=== PATIENT | male | born 1960 | race Caucasian/White ===

== ENCOUNTER 2019-03-15 12:17 | Emergency (ER) | payer MEDICARE, MEDICAID ==
[2019-03-15 15:02] LABS: MEAN CORPUSCULAR HEMOGLOBIN 30.8 pg (27.0-33.4); MEAN CORPUSCULAR HGB CONC 33.2 g/dL (32.0-36.0); MEAN CORPUSCULAR VOLUME 93 fl (80-97); PLATELET COUNT 355 10^3/uL (150-450); RED BLOOD COUNT 4.22 10^6/uL (4.35-5.55); RED CELL DISTRIBUTION WIDTH 12.7 % (11.5-14.0); WHITE BLOOD COUNT 9.8 10^3/uL (4.0-10.5)
[2019-03-15 15:07] LABS: ALANINE AMINOTRANSFERASE 12 U/L (21-72); ALBUMIN 3.8 g/dL (3.5-5.0); ALKALINE PHOSPHATASE 152 U/L (38-126); ANION GAP 10 (5-19); ASPARTATE AMINO TRANSFERASE 12 U/L (17-59); BILIRUBIN,DIRECT 0.3 mg/dL (0.0-0.4); BILIRUBIN,TOTAL 0.3 mg/dL (0.2-1.3); BLOOD UREA NITROGEN 26 mg/dL (7-20); CALCIUM 9.8 mg/dL (8.4-10.2); CARBON DIOXIDE 27 mmol/L (22-30); CHLORIDE 107 mmol/L (98-107); CREATINE KINASE 51 U/L (55-170); GLUCOSE 85 mg/dL (75-110); SODIUM 143.8 mmol/L (137-145); TOTAL PROTEIN 7.6 g/dL (6.3-8.2)
--- NOTE | 2019-03-15 15:08 | ER Document Report ---
Entered by MIRA NOGUERA SCRIBE 03/15/19 1309 Acting as scribe for:RONALD PENN MD ED General - General Chief Complaint: Fall Stated Complaint: FALL Time Seen by Provider: 03/15/19 13:03 Primary Care Provider: ROLO ZHOU MD [Primary Care Provider] - Follow up as needed Notes: Patient is a 58-year-old male arriving via EMS presenting to the emergency due to a call from his [facility] regarding "unpurposeful movement". Patient did not call anyone for a fall, this morning at 0900 patient was at his [facility] when his nurse called EMS because the patient had unpurposeful movements. EMS contacted his primary care physician who instructed them to bring him into the emergency department. Patient states that he recently had a urinary tract infection, in which he was transported from [place] his [facility] to [facility]. TRAVEL OUTSIDE OF THE [place] IN LAST 30 DAYS: No - Related Data Allergies/Adverse Reactions: No Known Allergies Allergy (Unverified 03/15/19 17:21) Past Medical History - General Information source: Patient - Social History Smoking Status: Unknown if Ever Smoked Cigarette use (# per day): No Chew tobacco use (# tins/day): No Frequency of alcohol use: None Drug Abuse: None Family History: Reviewed & Not Pertinent Patient has suicidal ideation: No Patient has homicidal ideation: No Neurological Medical History: Reports: Hx Seizures GI Medical History: Reports: Hx Gastroesophageal Reflux Disease, Hx Ulcer - pressure ulcer on unspecified buttock, stage 2 Musculoskeletal Medical History: Reports Other - Cachexia Psychiatric Medical History: Reports: Hx Anxiety Review of Systems - Review of Systems Constitutional: See HPI, Malaise EENT: No symptoms reported Cardiovascular: No symptoms reported Respiratory: No symptoms reported Gastrointestinal: No symptoms reported Genitourinary: No symptoms reported Male Genitourinary: No symptoms reported Musculoskeletal: No symptoms reported Skin: No symptoms reported Hematologic/Lymphatic: No symptoms reported Neurological/Psychological: See HPI, Tremor -: Yes All other systems reviewed and negative Physical Exam - Vital signs Vitals: Resp BP Pulse Ox 12 107/76 96 03/15/19 12:22 03/15/19 12:22 03/15/19 12:22 - Notes Notes: Physical Exam: General: Alert, cachectic. HEENT: Normocephalic. Atraumatic. PERRL. Extraocular movements intact. Oropharynx clear. Neck: Supple. Non-tender. Respiratory: No respiratory distress. Clear and equal breath sounds bilaterally. Cardiovascular: Regular rate and rhythm. Abdominal: Normal Inspection. Non-tender. No distension. Normal Bowel Sounds. Back: Non-tender. No deformity or step off. Extremities: Moves all four extremities. Upper extremities: Normal inspection. Normal ROM. Lower extremities: Normal inspection. No edema. Normal ROM. Neurological: Contractions, jerks. Normal cognition. AAOx4. Normal speech. Psychological: Normal affect. Normal Mood. Skin: Warm. Dry. Normal color. Course - Re-evaluation Re-evalutation: 03/15/19 18:45 The first catheterized urine obtained, was quite cloudy and looked infected. It was sent to the lab without a label being placed on it so was discarded by the lab. The second attempt to get a catheterized urine resulted in gross blood return so that attempt was stopped and the patient was given IV fluid hydration. A repeat attempt for the urinalysis using a [employer] was successful with a urine that was obviously infected but not grossly bloody. Review of the records shows when the patient was admitted for urosepsis 2 months ago, he was treated with Rocephin successfully. - Vital Signs Vital signs: Temp Pulse Resp BP Pulse Ox 977 F H 14 100/75 94 03/15/19 12:48 03/15/19 15:00 03/15/19 15:00 03/15/19 15:00 - Laboratory Result Diagrams: 03/15/19 14:29 03/15/19 14:29 Laboratory results interpreted by me: 03/15/19 03/15/19 03/15/19 14:29 14:29 15:28 RBC 4.22 L Hgb 13.0 L BUN 26 H AST 12 L ALT 12 L Alkaline Phosphatase 152 H Creatine Kinase 51 L Urine Protein Urine Blood Ur Leukocyte Esterase Urine Ascorbic Acid Phenytoin 5.7 L 03/15/19 17:39 RBC Hgb BUN AST ALT Alkaline Phosphatase Creatine Kinase Urine Protein >=500 H Urine Blood SMALL H Ur Leukocyte Esterase MODERATE H Urine Ascorbic Acid 40 H Phenytoin Discharge - Discharge Clinical Impression: Muscle spasms of both lower extremities, Subtherapeutic serum dilantin level Urinary tract infection Qualifiers: Urinary tract infection type: site unspecified Hematuria presence: with hematuria Qualified Code(s): N39.0 - Urinary tract infection, site not specified; R31.9 - Hematuria, unspecified Condition: Stable Disposition: HOME, SELF-CARE Additional Instructions: Urinary Tract Infection Your evaluation indicates that you have a urinary tract infection. This is due to germs growing in the bladder. This is a common problem. This infection usually responds quickly to antibiotics. Your antibiotic should be taken exactly as prescribed. Drink plenty of fluids -- three to four quarts a day. Occasionally, a bladder anesthetic will be prescribed to help stop the feeling of urgency until the antibiotic has a chance to clear the infection. This may cause your urine to be dark orange. Certain urine infections require a culture. If the doctor obtained a culture, the results will be back in two days. You should call to see if a change in treatment is needed. A repeat urinalysis after you finish treatment is often recommended. The physician will let you know if further testing is required. Call the doctor if you develop fever, chills, flank pain, inability to urinate, or blood in the urine. Your Dilantin level was very low today. The jerking that the nurse witnessed could possibly have been a seizure. You also have a urinary tract infection. You are given a dose of Dilantin to increase you to a therapeutic level. The Lamictal level is a send out and will be available sometime next week--your doctor should check with the lab to confirm that you are therapeutic on your La mictal. The urine was cultured and the results should be available in 2 days. For now you were given a dose of Rocephin in the emergency room and will be discharged with prescription for Keflex. You should drink plenty of fluids to help flush out the urine infection. Prescriptions: Cephalexin Monohydrate [Keflex 500 mg Capsule] 500 mg PO TID #20 capsule Referrals: ROLO ZHOU MD [Primary Care Provider] - Follow up as needed Scribe Attestation: 03/15/19 15:45 I personally performed the services described in the documentation, reviewed and edited the documentation which was dictated to the scribe in my presence, and it accurately records my words and actions. I personally performed the services described in the documentation, reviewed and edited the documentation which was dictated to the scribe in my presence, and it accurately records my words and actions.
[2019-03-15] MEDS ORDERED: NORMAL SALINE 1000 ML 500 ML IV ONE (15:10)
[2019-03-15 15:39] LABS: ABSOLUTE LYMPHOCYTES# (MANUAL) 3.9 10^3/uL (0.5-4.7); ABSOLUTE MONOCYTES # (MANUAL) 1.3 10^3/uL (0.1-1.4); BASOPHILS % (MANUAL) 0 % (0-2); EOSINOPHILS % (MANUAL) 2 % (0-6); LYMPHOCYTES % (MANUAL) 40 % (13-45); MONOCYTES % (MANUAL) 13 % (3-13); SEGMENTED NEUTROPHILS % (MAN) 45 % (42-78); TOTAL CELLS COUNTED 100
[2019-03-15 15:41] LABS: PLATELET CLUMPS PRESENT; PLATELET COMMENT ADEQUATE; RBC MORPHOLOGY COMMENT NORMO-CYTIC/CHROMIC
[2019-03-15] MEDS ORDERED: PHENYTOIN SODIUM INJ/PF 250 MG/5 ML SDV IV ONE (17:17)
[2019-03-15] MEDS ORDERED: LIDOCAINE 2% URO-JET 5 ML KIT MM ONE (17:19)
[2019-03-15 18:24] LABS: APPEARANCE,URINE TURBID; BILIRUBIN,URINE NEGATIVE (NEGATIVE); COLOR,URINE YELLOW; GLUCOSE, URINE NEGATIVE (NEGATIVE); KETONES,URINE NEGATIVE (NEGATIVE); LEUKOCYTE ESTERASE,URINE MODERATE (NEGATIVE); NITRITE,URINE NEGATIVE (NEGATIVE); PROTEIN,URINE >=500 mg/dL (NEGATIVE); URINE SPECIFIC GRAVITY 1.013; UROBILINOGEN,URINE NEGATIVE mg/dL (<2.0)
[2019-03-15] MEDS ORDERED: CEFTRIAXONE 1 GM/D5W RTU 1 GM/50 ML RTUPB IV ONE (18:41)
[2019-03-15 21:25] VITALS: BP 99/85
== END 2019-03-15 21:37 | disposition home or self-care (01) ==
LOC: ER 12:17
DX: N39.0 Urinary tract infection, site not specified (principal); R31.9 Hematuria, unspecified; M62.838 Other muscle spasm; R89.2 Abnormal level of other drugs, medicaments and biological substances in specimens from other organs, systems and tissues; R53.81 Other malaise
CPT/HCPCS: 99284; 96361; 51701; 96375; 96365; 36415; 87086; 82550; 83735; 80185; 85025; 87088; 80053; 80175; 81001; J1165; J7030; J0696; A9270; J3490

== ENCOUNTER 2019-07-13 16:10 | Emergency (ER) | payer MEDICARE, MEDICAID ==
--- NOTE | 2019-07-13 17:05 | ER Document Report ---
ED General - General Chief Complaint: Altered Mental Status Stated Complaint: ALTERED MENTAL STATUS Time Seen by Provider: 07/13/19 16:22 Primary Care Provider: ROLO ZHOU MD [Primary Care Provider] - Follow up as needed TRAVEL OUTSIDE OF THE [place] IN LAST 30 DAYS: No - HPI Notes: Patient is a 59-year-old male who is presented to the emergency department from the senior living for decreased level consciousness. He was found to have a supratherapeutic Dilantin level. It was actually found 2 days ago and is lower today. The patient states he has some pain in his left elbow. Otherwise he denies any acute complaints or concerns. - Related Data Allergies/Adverse Reactions: No Known Allergies Allergy (Unverified 03/15/19 17:21) Home Medications: Tylenol 650 mg every 4 hours as needed, vitamin C 500 mg daily, baclofen 10 mg 3 times daily as needed, Dilantin 100 mg, 2 capsules twice daily, iron tablet 325 mg daily, Keppra 500 mg twice daily, lactulose 15 mL p.o. daily for constipation, Lamictal 200 mg 3 times daily, Lamictal 25 mg 50 mg nightly, Zantac 150 mg twice daily, Remeron 7.5 mg daily, Zoloft 25 mg daily Past Medical History - General Information source: Patient, Outside Facility Records - Social History Smoking Status: Former Smoker Family History: Reviewed & Not Pertinent Patient has suicidal ideation: No Patient has homicidal ideation: No - Medical History Medical History: Other - Protein calorie malnutrition Neurological Medical History: Reports: Hx Seizures, Other - Metabolic encephalopathy Renal/ Medical History: Denies: Hx Peritoneal Dialysis GI Medical History: Reports: Hx Gastroesophageal Reflux Disease, Hx Ulcer - pressure ulcer on unspecified buttock, stage 2 Psychiatric Medical History: Reports: Hx Anxiety, Other - Conversion disorder Review of Systems - Review of Systems Constitutional: No symptoms reported EENT: No symptoms reported Cardiovascular: No symptoms reported Respiratory: No symptoms reported Gastrointestinal: No symptoms reported Genitourinary: No symptoms reported Musculoskeletal: No symptoms reported Skin: No symptoms reported Neurological/Psychological: See HPI Physical Exam - Vital signs Vitals: Resp 21 H 07/13/19 16:24 - Notes Notes: This is an extremely cachectic 59-year-old male, appears older than his stated age in no acute distress. Vital signs reviewed, please refer to chart. Head is normocephalic, atraumatic. Pupils equal round, reactive to light. Neck is supple without meningismus. Heart is regular rate and rhythm. Lungs are clear to auscultation bilaterally. Pectus excavatum noted. Abdomen is soft, non tender, normoactive bowel sounds throughout. Extremities without cyanosis, clubbing. Posterior calves are nontender. Peripheral pulses are equal. Skin is warm and dry. GCS 4, 5, 6. Patient oriented x3. Strength is 4+ out of 5 bilateral upper and lower extremities. No gross facial asymmetry. Course - Re-evaluation Re-evalutation: 07/13/19 17:07 Patient presents emergency department for evaluation of an elevated Dilantin le ac. It is been falling, does not as quickly as they were hoping. I will add a Dilantin level and ammonia level. Patient at this point has not GCS of 15, I am not concerned about any significant decreased level of consciousness. Will continue to monitor. 07/13/19 18:40 Patient remained stable. Dilantin level has come down significantly. He is awake and alert. We will discharge him back to the care of the senior living. - Vital Signs Vital signs: Temp Pulse Resp BP Pulse Ox 98.8 F 21 H 97/66 L 07/13/19 16:30 07/13/19 17:00 07/13/19 17:00 - Laboratory Result Diagrams: 07/13/19 16:22 07/13/19 16:22 Laboratory results interpreted by me: 07/13/19 07/13/19 07/13/19 16:21 16:22 16:22 RBC 3.86 L Hgb 11.7 L Hct 36.0 L RDW 14.4 H Chloride 111 H BUN 22 H Glucose 111 H POC Glucose 111 H Alkaline Phosphatase 130 H Albumin 3.3 L Phenytoin 07/13/19 16:22 RBC Hgb Hct RDW Chloride BUN Glucose POC Glucose Alkaline Phosphatase Albumin Phenytoin 23.8 H* Discharge - Discharge Clinical Impression: Subtherapeutic serum dilantin level Condition: Stable Disposition: HOME-SNF (ED ONLY) Instructions: Dilantin ([facility]) Additional Instructions: Dilantin level was 23.8 today. Continue to hold this medication. Follow-up with primary care this week, return to the ED with worsening. Referrals: ROLO ZHOU MD [Primary Care Provider] - Follow up as needed
[2019-07-13 17:08] LABS: ABSOLUTE EOSINOPHILS # (AUTO) 0.1 10^3/uL (0.0-0.6); ABSOLUTE LYMPHOCYTES (AUTO) 1.3 10^3/uL (0.5-4.7); ABSOLUTE MONOCYTES (AUTO) 0.7 10^3/uL (0.1-1.4); ABSOLUTE NEUT (AUTO) 6.2 10^3/uL (1.7-8.2); BASOPHILS % (AUTO) 0.2 % (0-2); EOSINOPHILS % (AUTO) 1.1 % (0-6); HEMOGLOBIN 11.7 g/dL (13.5-17.0); LYMPHOCYTES % (AUTO) 15.8 % (13-45); MEAN CORPUSCULAR HEMOGLOBIN 30.2 pg (27.0-33.4); MEAN CORPUSCULAR HGB CONC 32.4 g/dL (32.0-36.0); MEAN CORPUSCULAR VOLUME 93 fl (80-97); MONOCYTES % (AUTO) 8.3 % (3-13); PLATELET COUNT 183 10^3/uL (150-450); RED BLOOD COUNT 3.86 10^6/uL (4.35-5.55); RED CELL DISTRIBUTION WIDTH 14.4 % (11.5-14.0); SEGMENTED NEUTROPHILS % (AUTO) 74.6 % (42-78); TOTAL CELLS COUNTED % (AUTO) 100 %; WHITE BLOOD COUNT 8.3 10^3/uL (4.0-10.5)
[2019-07-13 17:13] LABS: ALBUMIN 3.3 g/dL (3.5-5.0); ALKALINE PHOSPHATASE 130 U/L (38-126); ANION GAP 9 (5-19); ASPARTATE AMINO TRANSFERASE 19 U/L (17-59); BILIRUBIN,DIRECT 0.3 mg/dL (0.0-0.4); BILIRUBIN,TOTAL 0.3 mg/dL (0.2-1.3); BLOOD UREA NITROGEN 22 mg/dL (7-20); CALCIUM 8.9 mg/dL (8.4-10.2); CARBON DIOXIDE 25 mmol/L (22-30); CHLORIDE 111 mmol/L (98-107); GLUCOSE 111 mg/dL (75-110); POTASSIUM 3.8 mmol/L (3.6-5.0); TOTAL PROTEIN 6.9 g/dL (6.3-8.2)
[2019-07-13 19:33] VITALS: BP 105/72
--- NOTE | 2019-07-13 22:55 | EKG REPORT ---
SEVERITY:- ABNORMAL ECG - SINUS RHYTHM PROBABLE LEFT ATRIAL ABNORMALITY LAD, CONSIDER LEFT ANTERIOR FASCICULAR BLOCK : Confirmed by: Caro Maher MD 13-Jul-2019 22:53:55
== END 2019-07-13 19:25 ==
LOC: ER 16:10
DX: R79.1 Abnormal coagulation profile (principal); R41.82 Altered mental status, unspecified; M25.522 Pain in left elbow
CPT/HCPCS: 36415; 80053; 80185; 82140; 82962; 85025; 93005; 93010; 99285

== ENCOUNTER 2019-07-18 11:14 | Emergency (ER) | payer MEDICARE, MEDICAID ==
[2019-07-18 12:27] LABS: ABSOLUTE BASOPHILS # (AUTO) 0.1 10^3/uL (0.0-0.2); ABSOLUTE EOSINOPHILS # (AUTO) 0.2 10^3/uL (0.0-0.6); ABSOLUTE LYMPHOCYTES (AUTO) 1.5 10^3/uL (0.5-4.7); ABSOLUTE MONOCYTES (AUTO) 0.6 10^3/uL (0.1-1.4); ABSOLUTE NEUT (AUTO) 7.3 10^3/uL (1.7-8.2); BASOPHILS % (AUTO) 0.6 % (0-2); EOSINOPHILS % (AUTO) 2.1 % (0-6); HEMATOCRIT 38.7 % (37.9-51.0); HEMOGLOBIN 13.1 g/dL (13.5-17.0); LYMPHOCYTES % (AUTO) 15.5 % (13-45); MEAN CORPUSCULAR HEMOGLOBIN 30.9 pg (27.0-33.4); MEAN CORPUSCULAR HGB CONC 33.7 g/dL (32.0-36.0); MEAN CORPUSCULAR VOLUME 92 fl (80-97); MONOCYTES % (AUTO) 6.5 % (3-13); PLATELET COUNT 327 10^3/uL (150-450); RED BLOOD COUNT 4.22 10^6/uL (4.35-5.55); RED CELL DISTRIBUTION WIDTH 13.8 % (11.5-14.0); SEGMENTED NEUTROPHILS % (AUTO) 75.3 % (42-78); TOTAL CELLS COUNTED % (AUTO) 100 %; WHITE BLOOD COUNT 9.8 10^3/uL (4.0-10.5)
[2019-07-18 12:46] LABS: ALBUMIN 3.8 g/dL (3.5-5.0); ALKALINE PHOSPHATASE 181 U/L (38-126); ANION GAP 10 (5-19); ASPARTATE AMINO TRANSFERASE 21 U/L (17-59); BILIRUBIN,DIRECT 0.2 mg/dL (0.0-0.4); BILIRUBIN,TOTAL 0.3 mg/dL (0.2-1.3); BLOOD UREA NITROGEN 25 mg/dL (7-20); CALCIUM 9.3 mg/dL (8.4-10.2); CARBON DIOXIDE 26 mmol/L (22-30); CHLORIDE 105 mmol/L (98-107); GLUCOSE 96 mg/dL (75-110); POTASSIUM 4.7 mmol/L (3.6-5.0); TOTAL PROTEIN 7.8 g/dL (6.3-8.2)
[2019-07-18 12:48] LABS: ALCOHOL < 10 mg/dL (NONE DETECTED)
--- NOTE | 2019-07-18 13:06 | ER Document Report ---
ED General - General Chief Complaint: Altered Mental Status Stated Complaint: ALTERED MAENTAL STATUS Time Seen by Provider: 07/18/19 12:51 Primary Care Provider: ROLO ZHOU MD [Primary Care Provider] - Follow up as needed Notes: Patient is a 59-year-old male who presents emergency department with decreased level of consciousness per the skilled nursing staff. Patient states that he files fine at this time. Apparently he was not talking, but began to talk after an hour and a half of not being his normal self. Patient denies any symptoms at this time. He was apparently seen here with a supratherapeutic phenytoin level the other day. Medication adjustments were made. TRAVEL OUTSIDE OF THE [place] IN LAST 30 DAYS: No - Related Data Allergies/Adverse Reactions: No Known Allergies Allergy (Unverified 03/15/19 17:21) Home Medications: Acetaminophen, Ascorbic acidm baclofen, Dilantin, Docusate sodium, iron, Keppra, Lactulose, Lamictal, ranitidine, Remeron, Sertraline Past Medical History - Social History Smoking Status: Former Smoker Chew tobacco use (# tins/day): No Frequency of alcohol use: None Drug Abuse: None Family History: Reviewed & Not Pertinent Patient has suicidal ideation: No Patient has homicidal ideation: No Neurological Medical History: Reports: Hx Seizures Renal/ Medical History: Denies: Hx Peritoneal Dialysis GI Medical History: Reports: Hx Gastroesophageal Reflux Disease, Hx Ulcer - pressure ulcer on unspecified buttock, stage 2 Psychiatric Medical History: Reports: Hx Anxiety Review of Systems - Review of Systems Notes: REVIEW OF SYSTEMS: CONSTITUTIONAL : Denies recent illness. Denies recent unintentional weight loss. Denies fever, chills, or sweats. EENT: Denies eye, ear, throat, or mouth pain, discharge, or symptoms. Denies nasal or sinus congestion. CARDIOVASCULAR: Denies chest pain. RESPIRATORY: Denies shortness of breath, cough, congestion, difficulty breathing, or wheezing. GASTROINTESTINAL: Denies nausea, vomiting, and diarrhea. Denies abdominal pain. Denies constipation. GENITOURINARY: Denies difficulty urinating, burning, blood in urine, urgency or frequency. MUSCULOSKELETAL: Denies neck and back pain. Denies joint pain or swelling. SKIN: Denies rash, itchiness, or lesions HEMATOLOGIC : Denies easy bruising or bleeding. LYMPHATIC: Denies swollen, painful, enlarged glands. NEUROLOGICAL: See HPI. PSYCHIATRIC: Denies stress, anxiety, alteration in sleep patterns, or depression. All other systems reviewed and negative. Physical Exam - Notes Notes: PHYSICAL EXAMINATION: GENERAL: Appears cachectic, chronically ill, no acute distress. HEAD: Normocephalic, atraumatic. EYES: PERRL, conjunctiva normal, all extraocular movements intact, sclera nonicteric ENT: Moist mucous membranes. NECK: Supple, no noticeable swelling, redness, rash. Normal range of motion. LUNGS: Equal breath sounds bilaterally and clear to auscultation. No wheezes rales or rhonchi. CARDIOVASCULAR: S1-S2, regular rate, regular rhythm. Radial pulses 2+, normal. ABDOMEN: Normoactive bowel sounds. Soft, nontender, no guarding, no rebound tenderness, and no masses palpated. EXTREMITIES: Normal strength and range of motion, no pitting or edema. No cyanosis. NEUROLOGICAL: Moves all extremities upon command. Strength 5/5 in all extremities. PSYCH: Normal mood, normal affect. SKIN: Warm, dry. No rash, lesions, ulcerations noted. Normal skin turgor. Course - Re-evaluation Re-evalutation: 07/18/19 16:09 Patient's Dilantin level is low. I will give him 100 mg IV and he will continue his Dilantin 200 mg twice a day at the skilled nursing. He will also has a urinary tract infection. He apparently's was started on Bactrim at [facility], but they DC'd the antibiotic. He will be started on Keflex. Urine culture has been set. I relayed this information on to the patient and to his aunt over the phone per the patient's request. Patient will be discharged to [facility]. Follow-up precautions were given. Verbal discharge instructions were given to the patient. They verbalized understanding. They are stable for discharge. - Laboratory Result Diagrams: 07/18/19 12:06 07/18/19 12:06 Laboratory results interpreted by me: 07/18/19 07/18/19 07/18/19 12:06 12:06 14:01 RBC 4.22 L Hgb 13.1 L BUN 25 H Alkaline Phosphatase 181 H Urine Protein Urine Blood Ur Leukocyte Esterase Urine Ascorbic Acid Phenytoin 3.3 L 07/18/19 15:13 RBC Hgb BUN Alkaline Phosphatase Urine Protein 100 H Urine Blood SMALL H Ur Leukocyte Esterase LARGE H Urine Ascorbic Acid 40 H Phenytoin - EKG Interpretation by Me Additional EKG results interpreted by me: 07/18/19 16:10 Sinus rhythm. Rate 92. OR 168; QRS 96; QT 376; QTc [address] elevations or depressions noted. Discharge - Discharge Clinical Impression: Subtherapeutic serum dilantin level Urinary tract infection Qualifiers: Urinary tract infection type: acute cystitis Hematuria presence: without hematuria Qualified Code(s): N30.00 - Acute cystitis without hematuria Condition: Stable Disposition: HOME, SELF-CARE Instructions: Cephalexin ([facility]) Additional Instructions: He was seen today in the emergency department for altered mental status. He has a urinary tract infection. His Dilantin level was low. He received 1000 mg of Dilantin IV and a gram of Rocephin here in the emergency department. He is being started on antibiotics. Make sure he takes all his antibiotics as prescribed. Please continue his Dilantin 200 mg p.o. twice a day. Prescriptions: Cephalexin [Keflex] 500 mg PO BID #14 capsule Referrals: ROLO ZHOU MD [Primary Care Provider] - Follow up in 3-5 days
--- NOTE | 2019-07-18 13:42 | RADIOLOGY REPORT (SQ) ---
EXAM DESCRIPTION: CT HEAD WITHOUT COMPLETED DATE/TIME: 07/18/2019 1:25 pm REASON FOR STUDY: AMS COMPARISON: None. TECHNIQUE: Axial images acquired through the brain without intravenous contrast. Images reviewed wi th bone, brain and subdural windows. Additional sagittal and coronal reconstructions were generated. Images stored on PACS. All CT scanners at this facility use dose modulation, iterative reconstruction, and/or weight based d osing when appropriate to reduce radiation dose to as low as reasonably achievable (ALARA). [facility]: Dose Right [facility]: CareDose [facility]: Dose Right [facility]: Teradose 4D [facility]: Smart CoworkingON RADIATION DOSE: CT Rad equipment meets quality standard of care and radiation dose reduction techniq ues were employed. CTDIvol: 53.2 mGy. DLP: 964 mGy-cm. mGy. LIMITATIONS: None. FINDINGS: VENTRICLES: Normal size and contour. CEREBRUM: No masses. No hemorrhage. No midline shift. No evidence for acute infarction. There is a symmetric left hemispheric volume loss. CEREBELLUM: No masses. No hemorrhage. No alteration of density. No evidence for acute infarction. EXTRAAXIAL SPACES: No fluid collections. No masses. ORBITS AND GLOBE: No intra- or extraconal masses. Normal contour of globe without masses. CALVARIUM: No fracture. Findings of a prior large left hemispheric craniotomy. PARANASAL SINUSES: No fluid or mucosal thickening. SOFT TISSUES: No mass or hematoma. OTHER: No other significant finding. IMPRESSION: No acute intracranial pathology. There is asymmetric volume loss of the left hemisphere with and overlying prior large left craniotomy. EVIDENCE OF ACUTE STROKE: NO. COMMENT: Quality ID # [id number]: Final reports with documentation of one or more dose reduction techniques (e.g., Automated exposure control, adjustment of the mA and/or kV according to patient size, use of iterative reconstruction technique) TECHNICAL DOCUMENTATION: JOB ID: [id number] [employer]- All Rights Reserved Reading location - IP/workstation name: [email or web address]
[2019-07-18 15:36] LABS: AMORPHOUS SEDIMENT,URINE 1+ /HPF; APPEARANCE,URINE CLOUDY; BILIRUBIN,URINE NEGATIVE (NEGATIVE); COLOR,URINE YELLOW; GLUCOSE, URINE NEGATIVE (NEGATIVE); KETONES,URINE NEGATIVE (NEGATIVE); LEUKOCYTE ESTERASE,URINE LARGE (NEGATIVE); NITRITE,URINE NEGATIVE (NEGATIVE); PROTEIN,URINE 100 mg/dL (NEGATIVE); URINE SPECIFIC GRAVITY 1.014; UROBILINOGEN,URINE NEGATIVE mg/dL (<2.0)
[2019-07-18] MEDS ORDERED: CEFTRIAXONE INJ 1000 MG VIAL IV ONE (15:40)
[2019-07-18] MEDS ORDERED: PHENYTOIN SODIUM INJ/PF 100 MG/2 ML SDV IV ONE (16:06)
[2019-07-18] MEDS ORDERED: NORMAL SALINE 1000 ML 1,000 ML IV ONE (16:08)
--- NOTE | 2019-07-18 18:12 | EKG REPORT ---
SEVERITY:- ABNORMAL ECG - BASELINE ARTIFACTS SINUS RHYTHM PROBABLE LEFT ATRIAL ABNORMALITY LEFT ANTERIOR FASCICULAR BLOCK PROBABLE RIGHT VENTRICULAR HYPERTROPHY : Confirmed by: Avi Wu MD 18-Jul-2019 18:11:10
== END 2019-07-18 20:24 ==
LOC: ER 11:14
DX: N30.00 Acute cystitis without hematuria (principal); F41.9 Anxiety disorder, unspecified; K21.9 Gastro-esophageal reflux disease without esophagitis; R56.9 Unspecified convulsions; Z79.899 Other long term (current) drug therapy; Z87.891 Personal history of nicotine dependence
CPT/HCPCS: 93005; 99285; 96361; 96375; 96365; 36415; 87086; 80307; 83735; 80185; 85025; 87088; 80053; 80175; 81001; 70450; 93010; J1165; J0696; J7030

== ENCOUNTER 2019-11-22 19:39 | Inpatient (IN) | payer MEDICARE, MEDICAID ==
[2019-11-22 20:27] LABS: ABSOLUTE BASOPHILS # (AUTO) 0.1 10^3/uL (0.0-0.2); ABSOLUTE EOSINOPHILS # (AUTO) 0.2 10^3/uL (0.0-0.6); ABSOLUTE LYMPHOCYTES (AUTO) 1.7 10^3/uL (0.5-4.7); ABSOLUTE MONOCYTES (AUTO) 0.8 10^3/uL (0.1-1.4); ABSOLUTE NEUT (AUTO) 9.5 10^3/uL (1.7-8.2); BASOPHILS % (AUTO) 0.5 % (0-2); EOSINOPHILS % (AUTO) 1.6 % (0-6); HEMATOCRIT 36.2 % (37.9-51.0); HEMOGLOBIN 12.2 g/dL (13.5-17.0); LYMPHOCYTES % (AUTO) 13.9 % (13-45); MEAN CORPUSCULAR HEMOGLOBIN 31.3 pg (27.0-33.4); MEAN CORPUSCULAR HGB CONC 33.7 g/dL (32.0-36.0); MEAN CORPUSCULAR VOLUME 93 fl (80-97); MONOCYTES % (AUTO) 6.4 % (3-13); PLATELET COUNT 342 10^3/uL (150-450); RED CELL DISTRIBUTION WIDTH 13.4 % (11.5-14.0); SEGMENTED NEUTROPHILS % (AUTO) 77.6 % (42-78); TOTAL CELLS COUNTED % (AUTO) 100 %; WHITE BLOOD COUNT 12.2 10^3/uL (4.0-10.5)
[2019-11-22 20:38] LABS: ALBUMIN 3.8 g/dL (3.5-5.0); ALKALINE PHOSPHATASE 153 U/L (38-126); ANION GAP 11 (5-19); ASPARTATE AMINO TRANSFERASE 19 U/L (17-59); BILIRUBIN,DIRECT 0.3 mg/dL (0.0-0.4); BILIRUBIN,TOTAL 0.3 mg/dL (0.2-1.3); BLOOD UREA NITROGEN 36 mg/dL (7-20); CALCIUM 9.2 mg/dL (8.4-10.2); CARBON DIOXIDE 23 mmol/L (22-30); CHLORIDE 107 mmol/L (98-107); CREATINE KINASE 88 U/L (55-170); GLUCOSE 115 mg/dL (75-110); POTASSIUM 4.4 mmol/L (3.6-5.0); TOTAL PROTEIN 7.6 g/dL (6.3-8.2)
[2019-11-22 20:49] LABS: CREATINE KINASE MB 2.42 ng/mL (<4.55)
[2019-11-22 20:58] LABS: TROPONIN I < 0.012 ng/mL
--- NOTE | 2019-11-22 21:03 | RADIOLOGY REPORT (SQ) ---
EXAM DESCRIPTION: XR CHEST 1 VIEW COMPLETED DATE/TME: 11/22/2019 20:21 CLINICAL HISTORY: 59 years Male shortness of breath COMPARISON: None. FINDINGS: The cardiomediastinal silhouette appears unremarkable. No consolidating infiltrates or pleural effusions. No pneumothorax. Elevation of the right hemidiaphragm with right basilar atelectasis. Chronic appearing deformity of the humeral head on the right. Bony demineralization. IMPRESSION: Elevation of the right hemidiaphragm with possible right lower lobe atelectasis versus scarring
--- NOTE | 2019-11-22 21:19 | ER Document Report ---
ED General - General Chief Complaint: Breathing Difficulty Stated Complaint: PSYCH/DIFFICULTY BREATHING Time Seen by Provider: 11/22/19 20:33 Notes: Patient is a 59-year-old male that comes emergency department by EMS from [facility] for chief complaint of behavioral problems and difficulty breathing. Reportedly patient was hitting himself, swearing, and hollering. EMS reports that patient was initially 89 to 90% on room air, they state they placed patient on oxygen and afterwards patient was calm. I asked patient why he was acting the way he was with yelling and hitting himself, he states it was because "I felt hot". He denies difficulty breathing but he states he likes how he feels on the oxygen. He denies chest pain, vomiting, abdominal pain, headache. He denies any other symptoms. Patient has a history of seizure disorder on Keppra and Lamictal, cachexia with essentially being bedbound, dysphagia, cognitive communication deficit, anxiety. Patient makes a constant chewing motion. Patient gives limited history. TRAVEL OUTSIDE OF THE [place] IN LAST 30 DAYS: No - Related Data Allergies/Adverse Reactions: No Known Allergies Allergy (Unverified 03/15/19 17:21) Home Medications: flexeril Past Medical History - General Information source: Patient - Social History Smoking Status: Unknown if Ever Smoked Frequency of alcohol use: None Drug Abuse: None Lives with: [facility] Family History: Reviewed & Not Pertinent Patient has suicidal ideation: No Patient has homicidal ideation: No Neurological Medical History: Reports: Hx Seizures Renal/ Medical History: Denies: Hx Peritoneal Dialysis GI Medical History: Reports: Hx Gastroesophageal Reflux Disease, Hx Ulcer - pressure ulcer on unspecified buttock, stage 2 Psychiatric Medical History: Reports: Hx Anxiety - Immunizations Hx Diphtheria, Pertussis, Tetanus Vaccination: Yes Review of Systems - Review of Systems Constitutional: No symptoms reported EENT: No symptoms reported Cardiovascular: No symptoms reported Respiratory: See HPI Gastrointestinal: No symptoms reported Genitourinary: No symptoms reported Male Genitourinary: No symptoms reported Musculoskeletal: No symptoms reported Skin: No symptoms reported Hematologic/Lymphatic: No symptoms reported Neurological/Psychological: See HPI Physical Exam - Vital signs Vitals: Resp BP Pulse Ox 21 H 127/81 H 94 11/22/19 19:47 11/22/19 19:47 03/07/20 19:47 - Notes Notes: GENERAL: Frail, chronically ill-appearing, cachectic HEAD: Normocephalic, atraumatic. EYES: Pupils equal, round, and reactive to light. Extraocular movements intact. ENT: Oral mucosa moist, tongue midline. Oropharynx unremarkable. Airway patent. LUNGS: Clear to auscultation bilaterally, no wheezes, rales, or rhonchi. No respiratory distress. HEART: Regular rate and rhythm. No murmur ABDOMEN: Soft, non-tender. Non-distended. EXTREMITIES: Limited movement of all extremities. No edema, normal radial and dorsalis pedis pulses bilaterally. NEUROLOGICAL: Alert and cooperative but very limited verbal interaction. Cranial nerves II through XII grossly intact. PSYCH: Repeated chewing motion. Does not appear to be in distress. Cooperative. SKIN: Warm, dry, normal turgor. No rashes or lesions noted. Course - Re-evaluation Re-evalutation: Patient initially hypoxic on arrival but placed on oxygen, he is doing well on this. He states he feels good on oxygen. His lungs are clear. He is cachectic but his physical exam is unremarkable otherwise. Vital signs unremarkable. CBC shows mild leukocytosis with elevation of neutrophils but no bandemia. Chemistry nonspecific. Troponin negative. Influenza negative. Chest x-ray was right-sided changes which could be chronic or atelectasis. At this time I do not know why patient is hypoxic. Patient is very mobile and almost bedbound. Because of his clear lungs, unexplained hypoxia, decision was made to proceed with CTA of the chest. CT of the chest shows right-sided normality which could be mucus, mass, or infection otherwise. Based on patient's evaluation I most strongly suspect pneumonia versus aspiration pneumonia. Patient is technically hospital-acquired pneumonia based on the facility is coming from. I discussed with Dr. Pozo. He recommends the patient be admitted to the hospital for hypoxia, pneumonia, and potentially needing a bronchoscopy. I discussed with Dr. Baires, hospitalist, patient is accepted to medical floor full admission. - Vital Signs Vital signs: Temp Pulse Resp BP Pulse Ox 98.2 F 66 19 127/71 H 100 11/23/19 05:11 11/23/19 05:11 11/23/19 05:11 11/23/19 05:11 11/23/19 05:11 - Laboratory Result Diagrams: 11/23/19 05:47 11/23/19 05:47 Laboratory results interpreted by me: 11/22/19 11/22/19 19:55 19:55 WBC 12.2 H RBC 3.90 L Hgb 12.2 L Hct 36.2 L Absolute Neuts (auto) 9.5 H BUN 36 H Glucose 115 H Alkaline Phosphatase 153 H Discharge - Discharge Clinical Impression: Hypoxia Leukocytosis Qualifiers: Leukocytosis type: unspecified Qualified Code(s): D72.829 - Elevated white blood cell count, unspecified Pneumonia Qualifiers: Pneumonia type: due to unspecified organism Laterality: right Lung location: lower lobe of lung Qualified Code(s): J18.9 - Pneumonia, unspecified organism Condition: Stable Disposition: ADMITTED INPATIENT Admitting Provider: Viry (Hospitalist) Unit Admitted: Medical Floor
[2019-11-22 22:23] LABS: A TYPE INFLUENZA AG NEGATIVE (NEGATIVE); B INFLUENZA AG NEGATIVE (NEGATIVE)
[2019-11-22 22:39] LABS: VENOUS BLOOD BASE EXCESS -0.5 mmol/L; VENOUS BLOOD HCO3 26.6 mmol/L (20-32); VENOUS BLOOD PCO2 51.8 mmHg (35-63); VENOUS BLOOD PH 7.33 (7.30-7.42)
--- NOTE | 2019-11-22 23:43 | RADIOLOGY REPORT (SQ) ---
CT ANGIOGRAM CHEST WITH IV CONTRAST: 11/22/2019 10:38 PM PIT INSPECTOR HISTORY: 59-year old patient with hypoxia. TECHNIQUE: Postcontrast CT through the chest was performed per protocol for CT angiography. 3D Multiplanar reformations were performed at the workstation. Reconstructed sagittal and coronal images were also obtained through the chest. This exam was performed according to our departmental dose-optimization program, which includes automated exposure control, adjustment of the mA and/or KV according to the patient's size and/or use of iterative reconstruction technique. COMPARISON: None available FINDINGS: The heart size is within normal limits of size. No significant mediastinal, supraclavicular, or axillary lymphadenopathy is seen. The thoracic aorta is within normal limits of size. No filling defects are seen within the pulmonary arteries to suggest a pulmonary artery embolism. The thyroid gland is unremarkable. The central tracheobronchial tree is patent. There are airspace opacities seen at the right lower lobe. This is a cyst with some volume loss. There are filling defects seen within the distal right lower lobe segmental bronchus. This could be due to a mass or mucous. Moderate centrilobular emphysematous changes are present. There is no evidence of pleural effusions or a pneumothorax. The bones demonstrate no suspicious lytic or blastic lesion. The visualized portions of the upper abdomen appear grossly unremarkable. The left kidney is irregularly shaped with a hypodensity seen at the superior pole. This may be due to severe hydronephrosis. There is a calculus partially visualized measuring at least 1.4 cm. This less likely may represent a cystic mass or infection. The area noted within the left kidney measures at least 8.5 x 4.9 cm. There is elevation of the right hemidiaphragm. IMPRESSION: There is volume loss airspace opacities at the right lower lobe. This could be due to central obstructive mass with atelectasis or infection. Interval follow-up is recommended. No filling defect is seen to suggest a pulmonary artery embolism. The left kidney is irregularly shaped with a hypodensity seen at at the superior pole. This could be due to chronic hydronephrosis. A cystic mass or infection is not excluded. Further evaluation with ultrasound is recommended.
[2019-11-23] MEDS ORDERED: VANCOMYCIN HCL INJ 1000 MG VIAL IV ONE (00:51)
[2019-11-23] MEDS ORDERED: PIPERACILLIN/TAZOBACTAM 3.375 GM VIAL IV ONE (00:51)
[2019-11-23] MEDS ORDERED: NORMAL SALINE 500 ML IV ONE (00:53)
[2019-11-23] MEDS ORDERED: ACETAMINOPHEN 325 MG TABLET PO PRN ×2 (03:26→14:17)
[2019-11-23] MEDS ORDERED: IPRATROPIUM/ALBUTEROL 0.5-2.5 MG/3 ML AMPUL NEB PRN (03:26)
--- NOTE | 2019-11-23 03:37 | PDOC H&P ---
History of Present Illness Admission Date/PCP: 11/23/19 01:58 ROLO ZHOU MD Patient complains of: Abnormal behavior History of Present Illness: VIRIDIANA JOSHUA is a 59 year old male who presents from [facility]. He is unable to provide any history. Evidently he was acting strangely. He was agitated. He was even hitting himself. He was transferred to the emergency department and was found to have a pneumonia with a slightly elevated white blood cell count and dehydration with an elevated BUN. He was referred to the hospital service for admission Past Medical History Past Medical History: Patient unable to provide Neurological Medical History: Reports: Seizures GI Medical History: Reports: Gastroesophageal Reflux Disease Past Surgical History Past Surgical History: Unable to obtain Social History Information Source: Outside Facility Records Lives with: [facility] Smoking Status: Unknown if Ever Smoked Electronic Cigarette use?: No Frequency of Alcohol Use: None Hx Recreational Drug Use: No Hx Prescription Drug Abuse: No - Advance Directive Resuscitation Status: Full Code - Confirmed with [facility] Family History Family History: Unable to obtain Parental Family History Reviewed: No Children Family History Reviewed: No Sibling(s) Family History Reviewed.: No Medication/Allergy Home Medications: Acetaminophen [Tylenol] 650 mg PO Q4HP PRN 11/23/19 Amino AC/Protein Hydr/Whey Pro [Prosource Plus Protein Liquid] 30 ml PO DAILY 11/23/19 Baclofen [Baclofen 10 mg Tablet] 10 mg PO Q8HP PRN 11/23/19 Bisacodyl [Dulcolax 10 mg Supp.rect] 10 mg OR DAILYP PRN 11/23/19 Docusate Sodium [Colace 100 mg Capsule] 100 mg PO BID 11/23/19 Famotidine [Pepcid 20 mg Tablet] 20 mg PO BID 11/23/19 Lactulose [Cephulac Syrup 20 gm/30 ml Udcup] 15 ml PO DAILY 11/23/19 Lamotrigine [Lamictal] 50 mg PO 199911/23/19 Lamotrigine [Lamictal] 200 mg PO Q8@0800,1200,1600 11/23/19 Levetiracetam [Keppra] 500 mg PO Q12 11/23/19 Menthol [Biofreeze] 1 applic TOP BID 11/23/19 Mirtazapine [Remeron 15 mg Tablet] 7.5 mg PO QPM 11/23/19 Phenytoin Sodium Extended [Dilantin 100 mg Capsule.er] 200 mg PO Q12 11/23/19 Polyethylene Glycol 3350 [Miralax Powder 17 gm/Packet] 1 packet PO DAILY 11/23/19 Sertraline HCl [Zoloft 50 mg Tablet] 25 mg PO DAILY 11/23/19 Allergies/Adverse Reactions: No Known Allergies Allergy (Unverified 03/15/19 17:21) Review of Systems ROS unobtainable: Due to mental status Physical Exam Vital Signs: Temp Pulse Resp BP Pulse Ox 98.6 F 20 130/80 H 94 11/23/19 01:02 11/23/19 00:01 11/23/19 00:00 11/23/19 00:01 Intake & Output 11/21/19 11/22/19 11/23/19 06:59 06:59 07:59 Intake Total 500 Balance 500 General appearance: PRESENT: no acute distress, thin, well-developed Head exam: PRESENT: atraumatic, normocephalic Eye exam: PRESENT: conjunctiva pink. ABSENT: scleral icterus Ear exam: PRESENT: normal external ear exam. ABSENT: bleeding, drainage Neck exam: ABSENT: carotid bruit, JVD, lymphadenopathy, thyromegaly Respiratory exam: PRESENT: clear to auscultation james - Anteriorly, symmetrical, unlabored. ABSENT: accessory muscle use, rales, rhonchi, tachypnea, wheezes Cardiovascular exam: PRESENT: RRR, +S1, +S2. ABSENT: systolic murmur GI/Abdominal exam: PRESENT: normal bowel sounds, soft. ABSENT: distended, guarding, mass, organolmegaly, tenderness Rectal exam: PRESENT: deferred Extremities exam: ABSENT: joint swelling, pedal edema Neurological exam: PRESENT: altered, awake, oriented to person Psychiatric exam: PRESENT: flat affect. ABSENT: agitated, anxious Focused psych exam: ABSENT: delusional, restlessness Skin exam: PRESENT: dry, normal color, warm. ABSENT: rash Results Laboratory Results: 11/22/19 19:55 11/22/19 19:55 11/22/19 11/22/19 11/22/19 19:55 19:55 21:40 WBC 12.2 H RBC 3.90 L Hgb 12.2 L Hct 36.2 L MCV 93 MCH 31.3 MCHC 33.7 RDW 13.4 Plt Count 342 Seg Neutrophils % 77.6 VBG pH 7.33 VBG pCO2 51.8 VBG HCO3 26.6 VBG Base Excess -0.5 Sodium 141.1 Potassium 4.4 Chloride 107 Carbon Dioxide 23 Anion Gap 11 BUN 36 H Creatinine 0.81 Est GFR ( Amer) > 60 Glucose 115 H Calcium 9.2 Total Bilirubin 0.3 AST 19 Alkaline Phosphatase 153 H Total Protein 7.6 Albumin 3.8 11/22/19 11/22/19 19:55 19:55 Creatine Kinase 88 CK-MB (CK-2) 2.42 Troponin I < 0.012 Impressions: Chest X-Ray 11/22/19 20:21 IMPRESSION: Elevation of the right hemidiaphragm with possible right lower lobe atelectasis versus scarring Chest/Abdomen CTA 11/22/19 22:54 IMPRESSION: There is volume loss airspace opacities at the right lower lobe. This could be due to central obstructive mass with atelectasis or infection. Interval follow-up is recommended. No filling defect is seen to suggest a pulmonary artery embolism. The left kidney is irregularly shaped with a hypodensity seen at at the superior pole. This could be due to chronic hydronephrosis. A cystic mass or infection is not excluded. Further evaluation with ultrasound is recommended. Assessment and Plan - Diagnosis (1) Pneumonia Qualifiers: Pneumonia type: due to unspecified organism Laterality: right Lung location: lower lobe of lung Qualified Code(s): J18.9 - Pneumonia, unspecified organism Is this a current diagnosis for this admission?: Yes Plan: 11/23/2019 Possibly due to aspiration. IV antibiotics administered. We will continue to monitor. (2) Hypoxia Is this a current diagnosis for this admission?: Yes Plan: 11/23/2019 Secondary to pneumonia. Supplement oxygen to keep saturation 90% or greater. Taper oxygen as tolerated. (3) Leukocytosis Qualifiers: Leukocytosis type: unspecified Qualified Code(s): D72.829 - Elevated white blood cell count, unspecified Is this a current diagnosis for this admission?: Yes Plan: 11/23/2019 Secondary to pneumonia. Should improve with antibiotics. Continue to monitor with serial blood tests. (4) Dehydration Is this a current diagnosis for this admission?: Yes Plan: 11/23/2019 BUN is elevated. We will administer gentle IV fluids. Continue to monitor serum chemistries. Assess patient for swallow and encourage oral intake if safe. (5) Seizure disorder Is this a current diagnosis for this admission?: Yes Plan: 11/23/2019 Continue medications based on MAR from [facility]. - Time Time Spent with patient: 35 or more minutes Medications reviewed and adjusted accordingly: Yes Anticipated discharge: Other - Long-term care - Inpatient Certification Based on my medical assessment, after consideration of the patient's comorbidities, presenting symptoms, or acuity I expect that the services needed warrant INPATIENT care.: Yes I certify that my determination is in accordance with my understanding of Medicare's requirements for reasonable and necessary INPATIENT services [42 CFR 412.3e].: Yes Medical Necessity: Need For IV Fluids, Need For Continuous Telemetry Monitoring, Need for IV Antibiotics Post Hospital Care: D/C Certified Dietary Manager Documentation
[2019-11-23] MEDS: HEPARIN SOD (PORCINE) 5,000 UNIT/ML 1 ML VIAL SUBCUT SCH ×3 (05:56→22:24)
[2019-11-23 05:57] LABS: ABSOLUTE EOSINOPHILS # (AUTO) 0.2 10^3/uL (0.0-0.6); ABSOLUTE LYMPHOCYTES (AUTO) 2.1 10^3/uL (0.5-4.7); ABSOLUTE MONOCYTES (AUTO) 0.9 10^3/uL (0.1-1.4); ABSOLUTE NEUT (AUTO) 4.6 10^3/uL (1.7-8.2); BASOPHILS % (AUTO) 0.6 % (0-2); EOSINOPHILS % (AUTO) 3.2 % (0-6); HEMOGLOBIN 11.9 g/dL (13.5-17.0); LYMPHOCYTES % (AUTO) 26.3 % (13-45); MEAN CORPUSCULAR HEMOGLOBIN 31.2 pg (27.0-33.4); MEAN CORPUSCULAR HGB CONC 34.2 g/dL (32.0-36.0); MEAN CORPUSCULAR VOLUME 91 fl (80-97); MONOCYTES % (AUTO) 11.1 % (3-13); PLATELET COUNT 318 10^3/uL (150-450); RED BLOOD COUNT 3.83 10^6/uL (4.35-5.55); RED CELL DISTRIBUTION WIDTH 13.3 % (11.5-14.0); SEGMENTED NEUTROPHILS % (AUTO) 58.8 % (42-78); TOTAL CELLS COUNTED % (AUTO) 100 %; WHITE BLOOD COUNT 7.8 10^3/uL (4.0-10.5)
[2019-11-23] MEDS: NORMAL SALINE 1000 ML 1,000 ML IV PRN ×2 (05:59→17:47)
[2019-11-23 06:28] LABS: ALBUMIN 3.4 g/dL (3.5-5.0); ALKALINE PHOSPHATASE 134 U/L (38-126); ANION GAP 6 (5-19); ASPARTATE AMINO TRANSFERASE 15 U/L (17-59); BILIRUBIN,DIRECT 0.1 mg/dL (0.0-0.4); BILIRUBIN,TOTAL 0.3 mg/dL (0.2-1.3); BLOOD UREA NITROGEN 25 mg/dL (7-20); CALCIUM 8.9 mg/dL (8.4-10.2); CARBON DIOXIDE 26 mmol/L (22-30); CHLORIDE 110 mmol/L (98-107); GLUCOSE 95 mg/dL (75-110); TOTAL PROTEIN 6.9 g/dL (6.3-8.2)
[2019-11-23] MEDS: LEVOFLOXACIN 750 MG/D5W RTU 750 MG/150 ML RTUPB IV SCH (09:16)
--- NOTE | 2019-11-23 09:21 | EKG REPORT ---
SEVERITY:- ABNORMAL ECG - SINUS RHYTHM LEFT ANTERIOR FASCICULAR BLOCK PROBABLE RIGHT VENTRICULAR HYPERTROPHY : Confirmed by: Avi Wu MD 23-Nov-2019 09:20:43
[2019-11-23] MEDS ORDERED: INFLUENZA QUAD (6MOS+) 2019-20 VAC 0.5 ML SYR IM ONE (10:35)
--- NOTE | 2019-11-23 11:47 | Progress Note ---
Provider Note Provider Note: Patient seen briefly this morning as he was admitted after midnight. Patient sleepy and difficult to arouse, although this may be his baseline with his dementia. Vital signs temperature 98.2 pulse 66 blood pressure 127/71. O2 sat 100% on 2 L nasal cannula White blood cell count is down from 12.2-7.8 BUN is down to 25 from 36 and creatinine is down to 0.74 from 0.81 Patient is currently on IV Levaquin CT scan of the chest shows mass, cyst, pneumonia in the right lower lobe. Unfortunately we do not have pulmonology here for the next several days. We will deal with this the best way we can, may have to be pursued as an outpatient I will order an ultrasound of both kidneys as recommended
[2019-11-23] MEDS ORDERED: BACLOFEN 10 MG TABLET PO PRN (14:17)
[2019-11-23] MEDS: HYDROCODONE/ACETAMINOPHEN 5-325 MG TABLET PO PRN (16:42)
[2019-11-23] MEDS: LAMOTRIGINE 100 MG TABLET PO SCH ×2 (16:42→22:25)
[2019-11-23] MEDS: SERTRALINE HCL 50 MG TABLET PO SCH (16:42)
[2019-11-23] MEDS: MIRTAZAPINE 15 MG TABLET PO SCH (17:46)
--- NOTE | 2019-11-23 18:35 | RADIOLOGY REPORT (SQ) ---
EXAM DESCRIPTION: U/S RETROPERITON (RENAL/AORTA) COMPLETED DATE/TIME: 11/23/2019 4:32 pm REASON FOR STUDY: Abnormal CT scan, renal system COMPARISON: 11/22/[address] TECHNIQUE: Dynamic and static grayscale images acquired of the kidneys and bladder and recorded on P ACS. Additional selected color Doppler and spectral images recorded. LIMITATIONS: Bowel gas. FINDINGS: RIGHT KIDNEY: Normal size. Normal echogenicity. No solid or suspicious masses. No hydronep hrosis. No calcifications. LEFT KIDNEY: Enlarged size, 12.7 cm length. No solid or suspicious masses identified. Moderate lef t hydronephrosis. Midbody parenchymal calcifications, 1.3 cm. BLADDER: Nonvisualized. OTHER FINDINGS: No other significant finding. IMPRESSION: Moderate left hydronephrosis and parenchymal calcifications. TECHNICAL DOCUMENTATION: JOB ID: [id number] 2010 [employer]- All Rights Reserved Reading location - IP/workstation name: [employer]
[2019-11-23] MEDS: PHENYTOIN SODIUM EXTENDED 100 MG CAPSULE PO SCH (22:25)
[2019-11-23] MEDS: LEVETIRACETAM 500 MG TABLET PO SCH (22:25)
[2019-11-24] MEDS: HYDROCODONE/ACETAMINOPHEN 5-325 MG TABLET PO PRN (03:09)
[2019-11-24] MEDS: NORMAL SALINE 1000 ML 1,000 ML IV PRN ×3 (03:10→23:53)
[2019-11-24 05:10] LABS: ABSOLUTE EOSINOPHILS # (AUTO) 0.2 10^3/uL (0.0-0.6); ABSOLUTE LYMPHOCYTES (AUTO) 1.7 10^3/uL (0.5-4.7); ABSOLUTE MONOCYTES (AUTO) 0.6 10^3/uL (0.1-1.4); ABSOLUTE NEUT (AUTO) 5.2 10^3/uL (1.7-8.2); BASOPHILS % (AUTO) 0.4 % (0-2); EOSINOPHILS % (AUTO) 2.2 % (0-6); HEMATOCRIT 33.8 % (37.9-51.0); HEMOGLOBIN 11.6 g/dL (13.5-17.0); LYMPHOCYTES % (AUTO) 22.1 % (13-45); MEAN CORPUSCULAR HEMOGLOBIN 31.4 pg (27.0-33.4); MEAN CORPUSCULAR HGB CONC 34.3 g/dL (32.0-36.0); MEAN CORPUSCULAR VOLUME 91 fl (80-97); PLATELET COUNT 323 10^3/uL (150-450); RED CELL DISTRIBUTION WIDTH 13.5 % (11.5-14.0); SEGMENTED NEUTROPHILS % (AUTO) 67.3 % (42-78); TOTAL CELLS COUNTED % (AUTO) 100 %; WHITE BLOOD COUNT 7.8 10^3/uL (4.0-10.5)
[2019-11-24 05:27] LABS: ALBUMIN 3.2 g/dL (3.5-5.0); ALKALINE PHOSPHATASE 125 U/L (38-126); ANION GAP 6 (5-19); ASPARTATE AMINO TRANSFERASE 15 U/L (17-59); BILIRUBIN,TOTAL 0.2 mg/dL (0.2-1.3); BLOOD UREA NITROGEN 15 mg/dL (7-20); CALCIUM 8.7 mg/dL (8.4-10.2); CARBON DIOXIDE 24 mmol/L (22-30); CHLORIDE 111 mmol/L (98-107); GLUCOSE 115 mg/dL (75-110); POTASSIUM 3.9 mmol/L (3.6-5.0); TOTAL PROTEIN 6.5 g/dL (6.3-8.2)
[2019-11-24] MEDS: HEPARIN SOD (PORCINE) 5,000 UNIT/ML 1 ML VIAL SUBCUT SCH ×3 (05:35→21:26)
[2019-11-24] MEDS: LAMOTRIGINE 100 MG TABLET PO SCH ×4 (08:26→21:26)
[2019-11-24] MEDS ORDERED: [UNRECOGNIZED DRUG - OTHER] PO SCH (10:00)
[2019-11-24] MEDS ORDERED: PROTEIN HYDR PO SCH (10:00)
[2019-11-24] MEDS ORDERED: WHEY PRO PO SCH (10:00)
[2019-11-24] MEDS ORDERED: AMINO AC PO SCH (10:00)
[2019-11-24] MEDS: LACTULOSE SYRUP 20 GM/30 ML UDCUP PO SCH (10:11)
[2019-11-24] MEDS: LEVETIRACETAM 500 MG TABLET PO SCH ×2 (10:11→21:26)
[2019-11-24] MEDS: POLYETHYLENE GLYCOL 3350 POWDER 17 GM/1 PACKET PO SCH (10:11)
[2019-11-24] MEDS: PHENYTOIN SODIUM EXTENDED 100 MG CAPSULE PO SCH ×2 (10:11→21:26)
[2019-11-24] MEDS: LEVOFLOXACIN 750 MG/D5W RTU 750 MG/150 ML RTUPB IV SCH (10:11)
[2019-11-24] MEDS: SERTRALINE HCL 50 MG TABLET PO SCH (10:12)
--- NOTE | 2019-11-24 13:03 | PDOC PROGRESS REPORT ---
Subjective Progress Note for:: 11/24/19 Reason For Visit: PNEUMONIA 11/24/2019 Patient admitted for probable pneumonia right lower lobe. Patient came from [facility] Other comorbidities include severe dementia, dehydration, seizure disorder Physical Exam Vital Signs: Temp Pulse Resp BP Pulse Ox 97.5 F 73 15 111/67 95 11/24/19 11:04 11/24/19 11:04 11/24/19 11:04 11/24/19 11:04 11/24/19 11:40 Pulse Oximeter Continuous Start: 11/23/19 03:26 Freq: RTQ4 Status: Active Protocol: Document 11/24/19 11:40 LDA (Rec: 11/24/19 11:40 LDA [id number]) Pulse Oximetry Assessment Oxygen Saturation (92-100) 95 Oxygen Delivery Method Room Air Fraction of Inspired Oxygen (FIO2) 21 Equipment Usage Equipment in Use Continuous SpO2 Machine # 5 Intake & Output 11/23/19 11/24/19 11/25/19 06:59 06:59 06:59 Intake Total 2588 Output Total Balance 2588 Weight 46.7 kg 46.7 kg General appearance: PRESENT: mild distress Respiratory exam: PRESENT: clear to auscultation james. ABSENT: rales, rhonchi, wheezes Cardiovascular exam: PRESENT: RRR. ABSENT: diastolic murmur, rubs, systolic murmur Neurological exam: PRESENT: altered, awake Psychiatric exam: PRESENT: flat affect Results Laboratory Results: 11/24/19 04:55 11/24/19 04:55 11/24/19 11/24/19 04:55 04:55 WBC 7.8 RBC 3.70 L Hgb 11.6 L Hct 33.8 L MCV 91 MCH 31.4 MCHC 34.3 RDW 13.5 Plt Count 323 Seg Neutrophils % 67.3 Sodium 140.6 Potassium 3.9 Chloride 111 H Carbon Dioxide 24 Anion Gap 6 BUN 15 Creatinine 0.62 Est GFR ( Amer) > 60 Glucose 115 H Calcium 8.7 Total Bilirubin 0.2 AST 15 L Alkaline Phosphatase 125 Total Protein 6.5 Albumin 3.2 L 11/22/19 11/22/19 19:55 19:55 Creatine Kinase 88 CK-MB (CK-2) 2.42 Troponin I < 0.012 Impressions: Chest X-Ray 11/22/19 20:21 IMPRESSION: Elevation of the right hemidiaphragm with possible right lower lobe atelectasis versus scarring Chest/Abdomen CTA 11/22/19 22:54 IMPRESSION: There is volume loss airspace opacities at the right lower lobe. This could be due to central obstructive mass with atelectasis or infection. Interval follow-up is recommended. No filling defect is seen to suggest a pulmonary artery embolism. The left kidney is irregularly shaped with a hypodensity seen at at the superior pole. This could be due to chronic hydronephrosis. A cystic mass or infection is not excluded. Further evaluation with ultrasound is recommended. Renal Ultrasound 11/23/19 00:00 IMPRESSION: Moderate left hydronephrosis and parenchymal calcifications. Assessment and Plan - Diagnosis (2) Dehydration Is this a current diagnosis for this admission?: Yes (3) Hypoxia Is this a current diagnosis for this admission?: Yes (4) Leukocytosis Qualifiers: Leukocytosis type: unspecified Qualified Code(s): D72.829 - Elevated white blood cell count, unspecified Is this a current diagnosis for this admission?: Yes (5) Pneumonia Qualifiers: Pneumonia type: due to unspecified organism Laterality: right Lung location: lower lobe of lung Qualified Code(s): J18.9 - Pneumonia, unspecified organism Is this a current diagnosis for this admission?: Yes (6) Seizure disorder Is this a current diagnosis for this admission?: Yes - Plan Summary Summary: 11/24/2019 Temp 97 6 pulse 74 blood pressure 108/65 O2 sat 96% on room air WBCs on admission 12.2 today 7.8 Renal functions improving BUN of 36 on admission today 15 creatinine on admission 0.81 today 0.62 Flu swab on admission was negative Blood culture negative x24 hours Renal ultrasound done yesterday shows moderate left hydronephrosis and parenchymal calcifications Patient's IV fluids currently running at 100/h, patient on IV Levaquin. Patient on his regular p.o. medications Patient will be going back to [facility] when his pneumonia has improved Poorly patient was sent over here for difficulty breathing, hypoxia, and change in behavioral patterns - Time Time Spent with patient: 15-24 minutes
[2019-11-24] MEDS: MIRTAZAPINE 15 MG TABLET PO SCH (17:15)
[2019-11-25] MEDS: HEPARIN SOD (PORCINE) 5,000 UNIT/ML 1 ML VIAL SUBCUT SCH ×3 (05:19→21:31)
--- NOTE | 2019-11-25 09:18 | PDOC PROGRESS REPORT ---
Subjective Progress Note for:: 11/25/19 Subjective:: 59 year old male who presents from [facility]. He is unable to provide any history. Evidently he was acting strangely. He was agitated. He was even hitting himself. He was transferred to the emergency department and was found to have a pneumonia with a slightly elevated white blood cell count and dehydration with an elevated BUN. He was referred to the hospital service for admission 11/25/[id number]-mhql-old male admitted from [facility]. He has history of dementia, seizure disorder. Admitted for right lower lobe pneumonia. pt is presently receiving IV levo floxacillin. Blood cultures are negative so far. Once he is stable plan is [facility]. Reason For Visit: PNEUMONIA Physical Exam Vital Signs: Temp Pulse Resp BP Pulse Ox 97.8 F 89 18 133/77 H 94 11/25/19 04:26 11/25/19 07:00 11/25/19 04:26 11/25/19 04:26 11/25/19 07:53 Pulse Oximeter Continuous Start: 11/23/19 03:26 Freq: RTQ4 Status: Active Protocol: Document 11/25/19 07:53 HCR (Rec: 11/25/19 07:54 HCR [id number]) Pulse Oximetry Assessment Oxygen Saturation (92-100) 94 Oxygen Delivery Method Room Air Fraction of Inspired Oxygen (FIO2) 21 Equipment Usage Equipment in Use Continuous SpO2 Machine # 5 Intake & Output 11/24/19 11/25/19 11/26/19 06:59 06:59 06:59 Intake Total 2588 2453 860 Balance 2588 2453 860 Weight 46.7 kg 47.9 kg General appearance: PRESENT: no acute distress Head exam: PRESENT: atraumatic Eye exam: PRESENT: PERRLA Mouth exam: PRESENT: moist, tongue midline Teeth exam: PRESENT: poor dentation Neck exam: ABSENT: carotid bruit, JVD, lymphadenopathy, thyromegaly Respiratory exam: PRESENT: decreased breath sounds Cardiovascular exam: PRESENT: RRR. ABSENT: diastolic murmur, rubs, systolic murmur Vascular exam: PRESENT: normal capillary refill GI/Abdominal exam: PRESENT: normal bowel sounds, soft. ABSENT: distended, gua rding, mass, organolmegaly, rebound, tenderness Rectal exam: PRESENT: deferred Extremities exam: PRESENT: full ROM. ABSENT: calf tenderness, clubbing, pedal edema Neurological exam: PRESENT: alert Psychiatric exam: PRESENT: appropriate affect, normal mood. ABSENT: homicidal ideation, suicidal ideation Results Laboratory Results: 11/24/19 04:55 11/24/19 04:55 11/22/19 11/22/19 19:55 19:55 Creatine Kinase 88 CK-MB (CK-2) 2.42 Troponin I < 0.012 Impressions: Chest X-Ray 11/22/19 20:21 IMPRESSION: Elevation of the right hemidiaphragm with possible right lower lobe atelectasis versus scarring Chest/Abdomen CTA 11/22/19 22:54 IMPRESSION: There is volume loss airspace opacities at the right lower lobe. This could be due to central obstructive mass with atelectasis or infection. Interval follow-up is recommended. No filling defect is seen to suggest a pulmonary artery embolism. The left kidney is irregularly shaped with a hypodensity seen at at the superior pole. This could be due to chronic hydronephrosis. A cystic mass or infection is not excluded. Further evaluation with ultrasound is recommended. Renal Ultrasound 11/23/19 00:00 IMPRESSION: Moderate left hydronephrosis and parenchymal calcifications. Assessment and Plan - Diagnosis (1) Dehydration Is this a current diagnosis for this admission?: Yes Plan: 11/23/2019 BUN is elevated. We will administer gentle IV fluids. Continue to monitor serum chemistries. Assess patient for swallow and encourage oral intake if safe. 11/25/2019-patient admitted with elevated bun 36 yesterday is 15. Admission creatinine 0.8 yesterday creatinine 0.68. Patient might have underlying ADRIA which was resolving. (2) Hypoxia Is this a current diagnosis for this admission?: Yes Plan: 11/23/2019 Secondary to pneumonia. Supplement oxygen to keep saturation 90% or greater. Taper oxygen as tolerated. 11/25/2019-patient admitted with hypoxia resolving. It may be secondary to pneumonia. Pulse ox today is 99% on room air. Comfortably in the bed. Not in distress. (3) Leukocytosis Qualifiers: Leukocytosis type: unspecified Qualified Code(s): D72.829 - Elevated white blood cell count, unspecified Is this a current diagnosis for this admission?: Yes Plan: 11/23/2019 Secondary to pneumonia. Should improve with antibiotics. Continue to monitor with serial blood tests. 11/25/2019-patient admitted with elevated WBC count normalizing. WBC 7.8 within normal range. (4) Pneumonia Qualifiers: Pneumonia type: due to unspecified organism Laterality: right Lung location: lower lobe of lung Qualified Code(s): J18.9 - Pneumonia, unspecified organism Is this a current diagnosis for this admission?: Yes Plan: 11/23/2019 Possibly due to aspiration. IV antibiotics administered. We will continue to monitor. 1020-patient admitted with pneumonia right lower lobe pneumonia may be secondary to aspiration. Patient is presently on IV levo floxacillin blood cultures are negative. Most likely gram-negative organisms. (5) Seizure disorder Is this a current diagnosis for this admission?: Yes Plan: 11/23/2019 Continue medications based on MAR from [facility]. 04/26/2020-patient has history of seizure disorder no seizure activity was noticed during the hospital stay. Patient is on Dilantin and Keppra. he is also on Lamictal. Plan is to check the Dilantin levels. - Plan Summary Summary: 11/24/2019 Temp 97 6 pulse 74 blood pressure 108/65 O2 sat 96% on room air WBCs on admission 12.2 today 7.8 Renal functions improving BUN of 36 on admission today 15 creatinine on admission 0.81 today 0.62 Flu swab on admission was negative Blood culture negative x24 hours Renal ultrasound done yesterday shows moderate left hydronephrosis and parenchymal calcifications Patient's IV fluids currently running at 100/h, patient on IV Levaquin. Patient on his regular p.o. medications Patient will be going back to [facility] when his pneumonia has improved Poorly patient was sent over here for difficulty breathing, hypoxia, and change in behavioral patterns
[2019-11-25] MEDS: PHENYTOIN SODIUM EXTENDED 100 MG CAPSULE PO SCH ×2 (11:09→21:30)
[2019-11-25] MEDS: POLYETHYLENE GLYCOL 3350 POWDER 17 GM/1 PACKET PO SCH (11:09)
[2019-11-25] MEDS: LEVOFLOXACIN 750 MG/D5W RTU 750 MG/150 ML RTUPB IV SCH (11:09)
[2019-11-25] MEDS: LEVETIRACETAM 500 MG TABLET PO SCH ×2 (11:10→21:29)
[2019-11-25] MEDS: SERTRALINE HCL 50 MG TABLET PO SCH (11:10)
[2019-11-25] MEDS: LACTULOSE SYRUP 20 GM/30 ML UDCUP PO SCH (11:10)
[2019-11-25] MEDS: LAMOTRIGINE 100 MG TABLET PO SCH ×4 (11:11→21:30)
--- NOTE | 2019-11-25 15:12 | CDI QUERY ---
CDI Query CDI Review: Dear Provider: To better reflect your patients severity of illness, morbidity, and resource utilization Please specify and document in the Progress Notes and Discharge Summary if you are monitoring / treating / evaluating any of the following conditions: Query Clinical indicators Please clarify if the dementia can be further specified: Alzheimers Dementia with or without behavioral disturbances Lewy Body Dementia with or without behavioral disturbances Vascular Dementia with or without behavioral disturbances Unable to determine Other Per ED Note: EMS from [facility] for chief complaint of behavioral problems and difficulty breathing. Reportedly patient was hitting himself, swearing, and hollering. Per Hospitalist Note: Other comorbidities include severe dementia, dehydration, seizure disorder The terms probable, suspected, likely, possible or still to be ruled out may be used if you are unable to determine the exact nature of a condition. Thank you, Clinical Documentation Physician Advisors NAVID Ramos RN, BSN RN Office [phone] Office [phone]
--- NOTE | 2019-11-25 15:45 | CDI QUERY ---
CDI Query CDI Review: Dear Provider: To better reflect your patients severity of illness, morbidity, and resource utilization Please specify and document in the Progress Notes and Discharge Summary if you are monitoring / treating / evaluating any of the following conditions: Query Clinical indicators Please clarify and document if the pneumonia can be further specified: Aspiration pneumonia GNR pneumonia GPC pneumonia Unable to determine Other Per H&P: Pneumonia Qualifiers: Pneumonia type: due to unspecified organism Laterality: right Lung location: lower lobe of lung Qualified Code(s): J18.9 - Pneumonia, unspecified organism Is this a current diagnosis for this admission?: Yes Plan: 11/23/2019 Possibly due to aspiration. IV antibiotics administered. We will continue to monitor. CT scan of the chest shows mass, cyst, pneumonia in the right lower lobe. Per Hospitalist note 11/24/2019: Patient admitted for probable pneumonia right lower lobe. Patient came from [facility] Other comorbidities include severe dementia, dehydration, seizure disorder Pt. is currently on Levaquin RTU 750 MG/ D5W Daily The terms probable, suspected, likely, possible or still to be ruled out may be used if you are unable to determine the exact nature of a condition. Thank you, Clinical Documentation Physician Advisors NAVID Ramos RN, BSN RN Office [phone] Office [phone]
[2019-11-25] MEDS: MIRTAZAPINE 15 MG TABLET PO SCH (17:21)
[2019-11-26] MEDS: HEPARIN SOD (PORCINE) 5,000 UNIT/ML 1 ML VIAL SUBCUT SCH ×3 (05:40→22:51)
[2019-11-26 06:05] LABS: ABSOLUTE EOSINOPHILS # (AUTO) 0.2 10^3/uL (0.0-0.6); ABSOLUTE LYMPHOCYTES (AUTO) 1.7 10^3/uL (0.5-4.7); ABSOLUTE MONOCYTES (AUTO) 0.7 10^3/uL (0.1-1.4); ABSOLUTE NEUT (AUTO) 3.8 10^3/uL (1.7-8.2); BASOPHILS % (AUTO) 0.5 % (0-2); EOSINOPHILS % (AUTO) 2.6 % (0-6); HEMATOCRIT 33.3 % (37.9-51.0); HEMOGLOBIN 11.5 g/dL (13.5-17.0); LYMPHOCYTES % (AUTO) 26.2 % (13-45); MEAN CORPUSCULAR HEMOGLOBIN 31.4 pg (27.0-33.4); MEAN CORPUSCULAR HGB CONC 34.6 g/dL (32.0-36.0); MEAN CORPUSCULAR VOLUME 91 fl (80-97); MONOCYTES % (AUTO) 11.5 % (3-13); PLATELET COUNT 296 10^3/uL (150-450); RED BLOOD COUNT 3.67 10^6/uL (4.35-5.55); RED CELL DISTRIBUTION WIDTH 13.5 % (11.5-14.0); SEGMENTED NEUTROPHILS % (AUTO) 59.2 % (42-78); TOTAL CELLS COUNTED % (AUTO) 100 %; WHITE BLOOD COUNT 6.4 10^3/uL (4.0-10.5)
[2019-11-26 06:25] LABS: ALBUMIN 3.3 g/dL (3.5-5.0); ALKALINE PHOSPHATASE 136 U/L (38-126); ANION GAP 8 (5-19); ASPARTATE AMINO TRANSFERASE 15 U/L (17-59); BILIRUBIN,DIRECT 0.1 mg/dL (0.0-0.4); BILIRUBIN,TOTAL 0.3 mg/dL (0.2-1.3); BLOOD UREA NITROGEN 21 mg/dL (7-20); CARBON DIOXIDE 24 mmol/L (22-30); CHLORIDE 109 mmol/L (98-107); GLUCOSE 82 mg/dL (75-110); POTASSIUM 3.9 mmol/L (3.6-5.0); TOTAL PROTEIN 6.5 g/dL (6.3-8.2)
[2019-11-26] MEDS: LACTULOSE SYRUP 20 GM/30 ML UDCUP PO SCH (09:12)
[2019-11-26] MEDS: LEVETIRACETAM 500 MG TABLET PO SCH ×2 (09:12→22:53)
[2019-11-26] MEDS: SERTRALINE HCL 50 MG TABLET PO SCH (09:12)
[2019-11-26] MEDS: POLYETHYLENE GLYCOL 3350 POWDER 17 GM/1 PACKET PO SCH (09:12)
[2019-11-26] MEDS: PHENYTOIN SODIUM EXTENDED 100 MG CAPSULE PO SCH ×2 (09:13→22:53)
[2019-11-26] MEDS: LAMOTRIGINE 100 MG TABLET PO SCH ×5 (09:15→22:53)
[2019-11-26] MEDS: LEVOFLOXACIN 750 MG/D5W RTU 750 MG/150 ML RTUPB IV SCH (09:17)
--- NOTE | 2019-11-26 09:47 | PDOC PROGRESS REPORT ---
Subjective Progress Note for:: 11/26/19 Subjective:: 59 year old male who presents from [facility]. He is unable to provide any history. Evidently he was acting strangely. He was agitated. He was even hitting himself. He was transferred to the emergency department and was found to have a pneumonia with a slightly elevated white blood cell count and dehydration with an elevated BUN. He was referred to the hospital service for admission 11/25/[id number]-old male admitted from [facility]. He has history of dementia, seizure disorder. Admitted for right lower lobe pneumonia. pt is presently receiving IV levo floxacillin. Blood cultures are negative so far. Once he is stable plan is to discharge him back to assisted. 11/26/[id number]-ylux-old male admitted from [facility]. Patient has history of dementia seizure disorder. Comfortably in the bed not in d istress. Receiving IV antibiotic therapy. Plan is to discharging back to assisted once the pneumonia is resolved. No acute events in the last 24 hours. Afebrile. Reason For Visit: PNEUMONIA Physical Exam Vital Signs: Temp Pulse Resp BP Pulse Ox 99.1 F 75 18 122/70 95 11/26/19 07:58 11/26/19 07:58 11/26/19 07:58 11/26/19 07:58 11/26/19 09:22 Pulse Oximeter Continuous Start: 11/23/19 03:26 Freq: RTQ4 Status: Active Protocol: Document 11/26/19 09:22 [facility] (Rec: 11/26/19 09:22 [facility] [id number]) Pulse Oximetry Assessment Oxygen Saturation (92-100) 95 Oxygen Delivery Method Room Air Fraction of Inspired Oxygen (FIO2) 21 Equipment Usage Equipment in Use Continuous SpO2 Machine # 5 Intake & Output 11/25/19 11/26/19 11/27/19 06:59 06:59 06:59 Intake Total 2453 1447 Balance 2453 1447 Weight 47.9 kg 50.8 kg General appearance: PRESENT: no acute distress, thin Head exam: PRESENT: atraumatic Eye exam: PRESENT: PERRLA Ear exam: PRESENT: normal external ear exam Mouth exam: PRESENT: moist, tongue midline Teeth exam: PRESENT: poor dentation Neck exam: ABSENT: carotid bruit, JVD, lymphadenopathy, thyromegaly Respiratory exam: PRESENT: decreased breath sounds Cardiovascular exam: PRESENT: RRR. ABSENT: diastolic murmur, rubs, systolic murmur Pulses: PRESENT: normal dorsalis pedis pul GI/Abdominal exam: PRESENT: normal bowel sounds, soft. ABSENT: distended, guarding, mass, organolmegaly, rebound, tenderness Rectal exam: PRESENT: deferred Extremities exam: PRESENT: full ROM. ABSENT: calf tenderness, clubbing, pedal edema Neurological exam: PRESENT: alert, awake Psychiatric exam: PRESENT: appropriate affect, normal mood. ABSENT: homicidal ideation, suicidal ideation Results Laboratory Results: 11/26/19 05:13 11/26/19 05:13 11/26/19 11/26/19 05:13 05:13 WBC 6.4 RBC 3.67 L Hgb 11.5 L Hct 33.3 L MCV 91 MCH 31.4 MCHC 34.6 RDW 13.5 Plt Count 296 Seg Neutrophils % 59.2 Sodium 140.6 Potassium 3.9 Chloride 109 H Carbon Dioxide 24 Anion Gap 8 BUN 21 H Creatinine 0.89 Est GFR ( Amer) > 60 Glucose 82 Calcium 9.0 Magnesium 2.0 Total Bilirubin 0.3 AST 15 L Alkaline Phosphatase 136 H Total Protein 6.5 Albumin 3.3 L 11/22/19 11/22/19 19:55 19:55 Creatine Kinase 88 CK-MB (CK-2) 2.42 Troponin I < 0.012 Impressions: Chest X-Ray 11/22/19 20:21 IMPRESSION: Elevation of the right hemidiaphragm with possible right lower lobe atelectasis versus scarring Chest/Abdomen CTA 11/22/19 22:54 IMPRESSION: There is volume loss airspace opacities at the right lower lobe. This could be due to central obstructive mass with atelectasis or infection. Interval follow-up is recommended. No filling defect is seen to suggest a pulmonary artery embolism. The left kidney is irregularly shaped with a hypodensity seen at at the superior pole. This could be due to chronic hydronephrosis. A cystic mass or infection is not excluded. Further evaluation with ultrasound is recommended. Renal Ultrasound 11/23/19 00:00 IMPRESSION: Moderate left hydronephrosis and parenchymal calcifications. Assessment and Plan - Diagnosis (1) Dehydration Is this a current diagnosis for this admission?: Yes Plan: 11/23/2019 BUN is elevated. We will administer gentle IV fluids. Continue to monitor serum chemistries. Assess patient for swallow and encourage oral intake if safe. 11/25/2019-patient admitted with elevated bun 36 yesterday is 15. Admission creatinine 0.8 yesterday creatinine 0.68. Patient might have underlying ADRIA which was resolving. 11/26/2019-BUN today is 21. Stable. (2) Hypoxia Is this a current diagnosis for this admission?: Yes Plan: 11/23/2019 Secondary to pneumonia. Supplement oxygen to keep saturation 90% or greater. Taper oxygen as tolerated. 11/25/2019-patient admitted with hypoxia resolving. It may be secondary to pneumonia. Pulse ox today is 99% on room air. Comfortably in the bed. Not in distress. 1120-patient is comfortable in the bed. Pulse ox is 95% on room air. Hypoxia is resolved. He acute chronic respiratory failure most likely secondary to underlying pneumonia. (3) Leukocytosis Qualifiers: Leukocytosis type: unspecified Qualified Code(s): D72.829 - Elevated white blood cell count, unspecified Is this a current diagnosis for this admission?: Yes Plan: 11/23/2019 Secondary to pneumonia. Should improve with antibiotics. Continue to monitor with serial blood tests. 11/25/2019-patient admitted with elevated WBC count normalizing. WBC 7.8 within normal range. 11/26/2019-WBC count is 6.4 today within normal range. (4) Pneumonia Qualifiers: Pneumonia type: due to unspecified organism Laterality: right Lung location: lower lobe of lung Qualified Code(s): J18.9 - Pneumonia, unspecified organism Is this a current diagnosis for this admission?: Yes Plan: 11/23/2019 Possibly due to aspiration. IV antibiotics administered. We will continue to monitor. 11/25/19-patient admitted with pneumonia right lower lobe pneumonia may be secondary to aspiration. Patient is presently on IV levo floxacillin blood cultures are negative. Most likely gram-negative organisms. 11/26/2019 patient admitted with right lower lobe pneumonia. Probably secondary to aspiration. Presently on IV levo floxacillin. Blood cultures are negative so far. Patient is unable to give any sputum culture. (5) Seizure disorder Is this a current diagnosis for this admission?: Yes Plan: 11/23/2019 Continue medications based on MAR from [facility]. 11/25/2019-patient has history of seizure disorder no seizure activity was noticed during the hospital stay. Patient is on Dilantin and Keppra. he is a lso on Lamictal. Plan is to check the Dilantin levels. 11/26/2019-patient has history of seizure disorder plan is to [facility]. (7) Protein-energy malnutrition Qualifiers: Protein-calorie malnutrition severity: moderate Qualified Code(s): E44.0 - Moderate protein-calorie malnutrition Is this a current diagnosis for this admission?: Yes Plan: 11/26/2019-patient BMI is less than 19. On examination wasting of the temporalis muscles, deltoid muscle, quadriceps muscles are seen. Dietary consult will be requested and we will provide nutrition supplementations. (8) Dementia Is this a current diagnosis for this admission?: No Plan: 11/26/2019-patient may have underlying Alzheimer's dementia came in with behavioral problems. This morning patient looks pleasant comfortable in the bed not in distress. - Plan Summary Summary: 11/24/2019 Temp 97 6 pulse 74 blood pressure 108/65 O2 sat 96% on room air WBCs on admission 12.2 today 7.8 Renal functions improving BUN of 36 on admission today 15 creatinine on admission 0.81 today 0.62 Flu swab on admission was negative Blood culture negative x24 hours Renal ultrasound done yesterday shows moderate left hydronephrosis and parenchymal calcifications Patient's IV fluids currently running at 100/h, patient on IV Levaquin. Patient on his regular p.o. medications Patient will be going back to [facility] when his pneumonia has improved Poorly patient was sent over here for difficulty breathing, hypoxia, and change in behavioral patterns
[2019-11-26] MEDS: MIRTAZAPINE 15 MG TABLET PO SCH (17:12)
[2019-11-27] MEDS: HEPARIN SOD (PORCINE) 5,000 UNIT/ML 1 ML VIAL SUBCUT SCH ×2 (05:27→13:04)
[2019-11-27] MEDS: LAMOTRIGINE 100 MG TABLET PO SCH ×3 (08:06→15:05)
[2019-11-27] MEDS: SERTRALINE HCL 50 MG TABLET PO SCH (09:20)
[2019-11-27] MEDS: PHENYTOIN SODIUM EXTENDED 100 MG CAPSULE PO SCH (09:20)
[2019-11-27] MEDS: LEVETIRACETAM 500 MG TABLET PO SCH (09:21)
[2019-11-27] MEDS: LACTULOSE SYRUP 20 GM/30 ML UDCUP PO SCH (09:21)
[2019-11-27] MEDS: POLYETHYLENE GLYCOL 3350 POWDER 17 GM/1 PACKET PO SCH (09:21)
[2019-11-27 09:41] VITALS: BP 92/57
[2019-11-27] MEDS ORDERED: LEVOFLOXACIN 750 MG TABLET PO SCH (10:00)
--- NOTE | 2019-11-27 13:26 | PDOC TRANSFER SUMMARY ---
Impression - Admit/DC Date/PCP Admission Date/Primary Care Provider: 11/23/19 01:58 ROLO ZHOU MD Discharge Date: 11/27/19 - Discharge Diagnosis (1) Dehydration Is this a current diagnosis for this admission?: Yes (2) Hypoxia Is this a current diagnosis for this admission?: Yes (3) Leukocytosis Is this a current diagnosis for this admission?: Yes (4) Pneumonia Is this a current diagnosis for this admission?: Yes (5) Seizure disorder Is this a current diagnosis for this admission?: Yes (7) Protein-energy malnutrition Is this a current diagnosis for this admission?: Yes (8) Dementia Is this a current diagnosis for this admission?: No - Assessment Summary: 11/24/2019 Temp 97 6 pulse 74 blood pressure 108/65 O2 sat 96% on room air WBCs on admission 12.2 today 7.8 Renal functions improving BUN of 36 on admission today 15 creatinine on admission 0.81 today 0.62 Flu swab on admission was negative Blood culture negative x24 hours Renal ultrasound done yesterday shows moderate left hydronephrosis and parenchymal calcifications Patient's IV fluids currently running at 100/h, patient on IV Levaquin. Patient on his regular p.o. medications Patient will be going back to [facility] when his pneumonia has improved Poorly patient was sent over here for difficulty breathing, hypoxia, and change in behavioral patterns 11/23/2019 BUN is elevated. We will administer gentle IV fluids. Continue to monitor serum chemistries. Assess patient for swallow and encourage oral intake if safe. 11/25/2019-patient admitted with elevated bun 36 yesterday is 15. Admission creatinine 0.8 yesterday creatinine 0.68. Patient might have underlying ADRIA which was resolving. 11/26/2019-BUN today is 21. Stable. (1) Dehydration Is this a current diagnosis for this admission?: Yes Plan: 11/23/2019 BUN is elevated. We will administer gentle IV fluids. Continue to monitor serum chemistries. Assess patient for swallow and encourage oral intake if safe. 11/25/2019-patient admitted with elevated bun 36 yesterday is 15. Admission creatinine 0.8 yesterday creatinine 0.68. Patient might have underlying ADRIA which was resolving. 11/26/2019-BUN today is 21. Stable. 3 04/28/2020-elevated BUN resolved. Kidney function is stable. Dehydration resolved. It is unlikely that the patient has acute kidney injury. (2) Hypoxia Is this a current diagnosis for this admission?: Yes Plan: 11/23/2019 Secondary to pneumonia. Supplement oxygen to keep saturation 90% or greater. Taper oxygen as tolerated. 11/25/2019-patient admitted with hypoxia resolving. It may be secondary to pneumonia. Pulse ox today is 99% on room air. Comfortably in the bed. Not in distress. 11/26/19-patient is comfortable in the bed. Pulse ox is 95% on room air. Hypoxia is resolved. He acute chronic respiratory failure most likely secondary to underlying pneumonia. 11/27/2019-patient came in with hypoxia acute on chronic respiratory failure. Most likely secondary to underlying pneumonia. Pulse ox today is 95% room air. Hypoxia is resolved. (3) Leukocytosis Qualifiers: Leukocytosis type: unspecified Qualified Code(s): D72.829 - Elevated white blood cell count, unspecified Is this a current diagnosis for this admission?: Yes Plan: 11/23/2019 Secondary to pneumonia. Should improve with antibiotics. Continue to monitor with serial blood tests. 11/25/2019-patient admitted with elevated WBC count normalizing. WBC 7.8 within normal range. 11/26/2019-WBC count is 6.4 today within normal range. 11/27/2019-his WBC count is 6400. Leukocytosis is resolved. (4) Pneumonia Qualifiers: Pneumonia type: due to unspecified organism Laterality: right Lung location: lower lobe of lung Qualified Code(s): J18.9 - Pneumonia, unspecified organism Is this a current diagnosis for this admission?: Yes Plan: 11/23/2019 Possibly due to aspiration. IV antibiotics administered. We will continue to m onitor. 11/25/19-patient admitted with pneumonia right lower lobe pneumonia may be secondary to aspiration. Patient is presently on IV levo floxacillin blood cultures are negative. Most likely gram-negative organisms. 11/26/2019 patient admitted with right lower lobe pneumonia. Probably secondary to aspiration. Presently on IV levo floxacillin. Blood cultures are negative so far. Patient is unable to give any sputum culture. 1220-imaging indicates right lower lobe pneumonia. May be secondary to aspiration. Treated with IV levofloxacin. Blood cultures are negative. Unable to get a sputum culture from the patient. [facility]. It can be healthcare associated pneumonia. (5) Seizure disorder Is this a current diagnosis for this admission?: Yes Plan: 11/23/2019 Continue medications based on MAR from [facility]. 11/25/2019-patient has history of seizure disorder no seizure activity was noticed during the hospital stay. Patient is on Dilantin and Keppra. he is also on Lamictal. Plan is to check the Dilantin levels. 11/26/2019-patient has history of seizure disorder plan is to DILAantin and Keppra. 11/27/2019-patient has history of seizure disorder during the hospital stay Dilantin and Keppra continued. (7) Protein-energy malnutrition Qualifiers: Protein-calorie malnutrition severity: moderate Qualified Code(s): E44.0 - Moderate protein-calorie malnutrition Is this a current diagnosis for this admission?: Yes Plan: 11/26/2019-patient BMI is less than 19. On examination wasting of the temporalis muscles, deltoid muscle, quadriceps muscles are seen. Dietary consult will be requested and we will provide nutrition supplementations. (8) Dementia Is this a current diagnosis for this admission?: No Plan: 11/26/2019-patient may have underlying Alzheimer's dementia came in with behavioral problems. This morning patient looks pleasant comfortable in the bed not in distress. - Additional Information Resuscitation Status: Full Code - Confirmed with [facility] Discharge Diet: Cardiac Discharge Activity: Activity As Tolerated Referrals: ROLO ZHOU MD [Primary Care Provider] - Follow up as needed Prescriptions: Levofloxacin [Levaquin 750 mg Tablet] 750 mg PO DAILY 5 Days #5 tablet Home Medications: Acetaminophen [Tylenol] 650 mg PO Q4HP PRN 11/23/19 Amino AC/Protein Hydr/Whey Pro [Prosource Plus Protein Liquid] 30 ml PO DAILY 11/23/19 Baclofen [Baclofen 10 mg Tablet] 10 mg PO Q8HP PRN 11/23/19 Bisacodyl [Dulcolax 10 mg Supp.rect] 10 mg AL DAILYP PRN 11/23/19 Docusate Sodium [Colace 100 mg Capsule] 100 mg PO BID 11/23/19 Famotidine [Pepcid 20 mg Tablet] 20 mg PO BID 11/23/19 Lactulose [Cephulac Syrup 20 gm/30 ml Udcup] 15 ml PO DAILY 11/23/19 Lamotrigine [Lamictal] 50 mg PO 2000 11/23/19 Lamotrigine [Lamictal] 200 mg PO Q8@0800,1200,1600 11/23/19 Levetiracetam [Keppra] 500 mg PO Q12 11/23/19 Menthol [Biofreeze] 1 applic TOP BID 11/23/19 Mirtazapine [Remeron 15 mg Tablet] 7.5 mg PO QPM 11/23/19 Phenytoin Sodium Extended [Dilantin 100 mg Capsule.er] 200 mg PO Q12 11/23/19 Polyethylene Glycol 3350 [Miralax Powder 17 gm/Packet] 1 packet PO DAILY 11/22 Sertraline HCl [Zoloft 50 mg Tablet] 25 mg PO DAILY 11/23/19 Levofloxacin [Levaquin 750 mg Tablet] 750 mg PO DAILY 5 Days #5 tablet 11/27/19 History of Present Illiness History of Present Illness: VIRIDIANA JOSHUA is a 59 year old male 59 year old male who presents from [facility]. He is unable to provide any history. Evidently he was acting strangely. He was agitated. He was even hitting himself. He was transferred to the emergency department and was found to have a pneumonia with a slightly elevated white blood cell count and dehydrat ion with an elevated BUN. He was referred to the hospital service for admission Hospital Course Hospital Course: 59 year old male who presents from [facility]. He is unable to provide any history. Evidently he was acting strangely. He was agitated. He was even hitting himself. He was transferred to the emergency department and was found to have a pneumonia with a slightly elevated white blood cell count and dehydration with an elevated BUN. He was referred to the hospital service for admission 11/25/[id number]-old male admitted from [facility]. He has history of dementia, seizure disorder. Admitted for right lower lobe pneumonia. pt is presently receiving IV levo floxacillin. Blood cultures are negative so far. Once he is stable plan is [facility]. 11/26/[id number]-old male admitted from [facility]. Patient has history of dementia seizure disorder. Comfortably in the bed not in distress. Receiving IV antibiotic therapy. Plan is to discharging [facility] to [facility] once the pneumonia is resolved. No acute events in the last 24 hours. Afebrile. 11/27/2019-no acute events in the last 24 hours. Afebrile. Blood cultures are negative. In my opinion patient is stable enough to [facility] to the [facility] with p.[facility] antibiotic therapy. Physical Exam Vital Signs: Temp Pulse Resp BP Pulse Ox 97.4 F 76 15 92/57 L 93 11/27/19 08:35 11/27/19 08:35 11/27/19 08:35 11/27/19 08:35 11/27/19 12:00 Pulse Oximeter Continuous Start: 11/23/19 03:26 Freq: RTQ4 Status: Active Protocol: Document 11/27/19 12:00 [facility] (Rec: 11/27/19 13:03 [facility] [id number]) Pulse Oximetry Assessment Oxygen Saturation (92-100) 93 Oxygen Delivery Method Room Air Fraction of Inspired Oxygen (FIO2) 21 Equipment Usage Equipment in Use Continuous SpO2 Machine # 5 Intake & Output 11/26/19 11/27/19 11/28/19 06:59 06:59 06:59 Intake Total 1447 250 Balance 1447 250 Weight 50.8 kg 50 kg General appearance: PRESENT: no acute distress, thin Head exam: PRESENT: atraumatic Eye exam: PRESENT: PERRLA Ear exam: PRESENT: normal external ear exam Mouth exam: PRESENT: dry mucosa Teeth exam: PRESENT: poor dentation Neck exam: ABSENT: carotid bruit, JVD, lymphadenopathy, thyromegaly Respiratory exam: PRESENT: decreased breath sounds Cardiovascular exam: PRESENT: RRR. ABSENT: diastolic murmur, rubs, systolic murmur Pulses: PRESENT: normal dorsalis pedis pul GI/Abdominal exam: PRESENT: normal bowel sounds, soft. ABSENT: distended, guarding, mass, organolmegaly, rebound, tenderness Rectal exam: PRESENT: deferred Extremities exam: PRESENT: full ROM. ABSENT: calf tenderness, clubbing, pedal edema Neurological exam: PRESENT: alert, awake, oriented to person, oriented to place, oriented to time, oriented to situation, CN II-XII grossly intact. ABSENT: motor sensory deficit Psychiatric exam: PRESENT: appropriate affect, normal mood. ABSENT: homicidal ideation, suicidal ideation Results Laboratory Results: WBC 6.4 10^3/uL (4.0-10.5) 11/26/19 05:13 RBC 3.67 10^6/uL (4.35-5.55) L 11/26/19 05:13 Hgb 11.5 g/dL (13.5-17.0) L 11/26/19 05:13 Hct 33.3 % (37.9-51.0) L 11/26/19 05:13 MCV 91 fl (80-97) 11/26/19 05:13 MCH 31.4 pg (27.0-33.4) 11/26/19 05:13 MCHC 34.6 g/dL (32.0-36.0) 11/26/19 05:13 RDW 13.5 % (11.5-14.0) 11/26/19 05:13 Plt Count 296 10^3/uL (150-450) 11/26/19 05:13 Lymph % (Auto) 26.2 % (13-45) 11/26/19 05:13 [place] % (Auto) 11.5 % (3-13) 11/26/19 05:13 Eos % (Auto) 2.6 % (0-6) 11/26/19 05:13 Baso % (Auto) 0.5 % (0-2) 11/26/19 05:13 Absolute Neuts (auto) 3.8 10^3/uL (1.7-8.2) 11/26/19 05:13 Absolute Lymphs (auto) 1.7 10^3/uL (0.5-4.7) 11/26/19 05:13 Absolute Monos (auto) 0.7 10^3/uL (0.1-1.4) 11/26/19 05:13 Absolute Eos (auto) 0.2 10^3/uL (0.0-0.6) 11/26/19 05:13 Absolute Basos (auto) 0.0 10^3/uL (0.0-0.2) 11/26/19 05:13 Seg Neutrophils % 59.2 % (42-78) 11/26/19 05:13 VBG pH 7.33 (7.30-7.42) 11/22/19 21:40 VBG pCO2 51.8 mmHg (35-63) 11/22/19 21:40 VBG HCO3 26.6 mmol/L (20-32) 11/22/19 21:40 VBG Base Excess -0.5 mmol/L 11/22/19 21:40 Sodium 140.6 mmol/L (137-145) 11/26/19 05:13 Potassium 3.9 mmol/L (3.6-5.0) 11/26/19 05:13 Chloride 109 mmol/L (98-107) H 11/26/19 05:13 Carbon Dioxide 24 mmol/L (22-30) 11/26/19 05:13 Anion Gap 8 (5-19) 11/26/19 05:13 BUN 21 mg/dL (7-20) H 11/26/19 05:13 Creatinine 0.89 mg/dL (0.52-1.25) 11/26/19 05:13 Est GFR ( Amer) > 60 (>60) 11/26/19 05:13 Est GFR (MDRD) Non-Af > 60 (>60) 11/26/19 05:13 Glucose 82 mg/dL (75-110) 11/26/19 05:13 Calcium 9.0 mg/dL (8.4-10.2) 11/26/19 05:13 Magnesium 2.0 mg/dL (1.6-2.3) 11/26/19 05:13 Total Bilirubin 0.3 mg/dL (0.2-1.3) 11/26/19 05:13 Direct Bilirubin 0.1 mg/dL (0.0-0.4) 11/26/19 05:13 Neonat Total Bilirubin Not Reportable 11/26/19 05:13 Neonat Direct Bilirubin Not Reportable 11/26/19 05:13 Neonat Indirect Bili Not Reportable 11/26/19 05:13 AST 15 U/L (17-59) L 11/26/19 05:13 ALT 10 U/L (<50) 11/26/19 05:13 Alkaline Phosphatase 136 U/L (38-126) H 11/26/19 05:13 Creatine Kinase 88 U/L (55-170) 11/22/19 19:55 CK-MB (CK-2) 2.42 ng/mL (<4.55) 11/22/19 19:55 Troponin I < 0.012 ng/mL 11/22/19 19:55 Total Protein 6.5 g/dL (6.3-8.2) 11/26/19 05:13 Albumin 3.3 g/dL (3.5-5.0) L 11/26/19 05:13 Phenytoin 12.3 ug/mL (10.0-20.0) 11/26/19 10:20 Influenza A (Rapid) NEGATIVE (NEGATIVE) 11/22/19 22:01 Influenza B (Rapid) NEGATIVE (NEGATIVE) 11/22/19 22:01 11/22/19 19:55 CK-MB (CK-2) 2.42 Troponin I < 0.012 Impressions: Chest X-Ray 11/22/19 20:21 IMPRESSION: Elevation of the right hemidiaphragm with possible right lower lobe atelectasis versus scarring Chest/Abdomen CTA 11/22/19 22:54 IMPRESSION: There is volume loss airspace opacities at the right lower lobe. This could be due to central obstructive mass with atelectasis or infection. Interval follow-up is recommended. No filling defect is seen to suggest a pulmonary artery embolism. The left kidney is irregularly shaped with a hypodensity seen at at the superior pole. This could be due to chronic hydronephrosis. A cystic mass or infection is not excluded. Further evaluation with ultrasound is recommended. Renal Ultrasound 11/23/19 00:00 IMPRESSION: Moderate left hydronephrosis and parenchymal calcifications. Plan Plan of Treatment: Patient is going back to long-term care facility with p.o. antibiotic therapy. Time Spent: Greater than 30 Minutes Stroke Is this a Stroke Patient?: No Acute Heart Failure - Is this a Heart Failure Patient?: No
== END 2019-11-27 16:12 | DRG 194 ==
LOC: ER 19:39 → EH 11-23 01:58 → 3N 11-23 05:00
PROVIDERS: ADMIT Hospitalist; ATTEND Internal Medicine
DX: J18.9 Pneumonia, unspecified organism (principal); E44.0 Moderate protein-calorie malnutrition; N13.30 Unspecified hydronephrosis; F03.91 Unspecified dementia, unspecified severity, with behavioral disturbance; G40.909 Epilepsy, unspecified, not intractable, without status epilepticus; Z79.899 Other long term (current) drug therapy; K21.9 Gastro-esophageal reflux disease without esophagitis; E86.0 Dehydration
CPT/HCPCS: 36415; 71045; 71275; 76770; 80053; 80185; 82140; 82550; 82553; 82803; 83735; 84484; 85025; 87040; 87804; 93005; 93010; 94762; 96365; 96375; 99285; J1644; J1956; J2543; J3370; J3490; J7030; J7040

== ENCOUNTER 2020-08-24 13:01 | Inpatient (IN) | payer MEDICARE, OTHER, MEDICAID ==
[2020-08-24 14:14] LABS: APPEARANCE,URINE TURBID; BILIRUBIN,URINE NEGATIVE (NEGATIVE); COLOR,URINE YELLOW; GLUCOSE, URINE NEGATIVE (NEGATIVE); KETONES,URINE NEGATIVE (NEGATIVE); LEUKOCYTE ESTERASE,URINE LARGE (NEGATIVE); NITRITE,URINE NEGATIVE (NEGATIVE); PROTEIN,URINE 100 mg/dL (NEGATIVE)
[2020-08-24 14:33] LABS: URINE AMPHETAMINES SCREEN NEGATIVE; URINE BARBITURATES SCREEN NEGATIVE; URINE BENZODIAZEPINES SCREEN NEGATIVE; URINE COCAINE SCREEN NEGATIVE; URINE MARIJUANA (THC) SCREEN NEGATIVE; URINE METHADONE SCREEN NEGATIVE; URINE PHENCYCLIDINE SCREEN NEGATIVE
[2020-08-24] MEDS ORDERED: NORMAL SALINE 1000 ML 1,000 ML IV ONE (14:47)
--- NOTE | 2020-08-24 15:15 | ER Document Report ---
ED General - General Chief Complaint: Rectal Bleeding Stated Complaint: RECTAL BLEEDING Time Seen by Provider: 08/24/20 14:05 Primary Care Provider: ROLO ZHOU MD [Primary Care Provider] - Follow up as needed TRAVEL OUTSIDE OF THE [place] 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 He was apparently hypotensive when EMS arrived and had a moderate amount of rectal bleeding. They administered a unit of noncrossmatch packed cells during transport. Patient is nonverbal and I was not able to get a lot of additional history from him. I reviewed all records and saw the been previously hospitalized here in November of this year for pneumonia and altered mental status. He was indicated to be a "full code" at that time. I subsequently spoke with his next of kin his Sister Beatriz Spangler by telephone. She apparently has power of medical transcription and has indicated that she wishes for him to be a DNR/DNI at this time and indicates that we should maximize comfort measures. - Related Data Allergies/Adverse Reactions: lorazepam [From Ativan] Allergy (Verified 08/24/20 14:42) Home Medications: Tylenol. Baclofen. Benadryl. Cogentin. BIofreeze. Bisacodyl. Clozapine. Dilantin. Docusate. Miralax. Haldol. Keppra. Lamictal. MOM. MVI. [place]. Pepcid. Senna. Seroquel. Trazadone Past Medical History - General Information source: Relative, Emergency Med Personnel, [facility] Records Cannot obtain history due to: Dementia, Altered mental status - Social History Smoking Status: Unknown if Ever Smoked Family History: Reviewed & Not Pertinent Neurological Medical History: Reports: Hx Seizures Renal/ Medical History: Denies: Hx Peritoneal Dialysis GI Medical History: Reports: Hx Gastroesophageal Reflux Disease, Hx Ulcer - pressure ulcer on unspecified buttock, stage 2 Psychiatric Medical History: Reports: Hx Anxiety, Hx Depression Past Surgical History: Reports: Hx Neurologic Surgery - removal of neoplasm - Immunizations Hx Diphtheria, Pertussis, Tetanus Vaccination: Yes Review of Systems - Review of Systems -: Yes ROS unobtainable due to patient's medical condition Physical Exam - Vital signs Vitals: Resp 14 08/24/20 13:12 Blood pressure is 105/70 at this time on repeat at bedside - Notes Notes: GENERAL: Elderly male who is somewhat disheveled with altered mental status. SKIN: Pale and cool. Good turgor no rashes. HEAD: Bitemporal wasting. Normocephalic atraumatic. EYES: Eyes appear sunken consistent with dehydration. Eyes are open spontaneously. Gaze is conjugate. Conjunctivae and sclerae clear. EARS: CANALS AND TMS CLEAR. NOSE: CLEAR. MOUTH: Dry oral mucosa. Good dentition. No stridor or edema. No drooling. NECK: Supple. No masses or thyromegaly. No adenopathy. Carotids 2+ without bruits. No JVD. BACK: Symmetrical without tenderness. CHEST: Respirations unlabored. Breath sounds clear and symmetrical. HEART: Regular rhythm. No murmur gallop or rub. ABDOMEN: Soft nontender without masses, organomegaly or rebound. Bowel sounds normally active. No bruits. GENITALIA: Normal male. Rectal: Blood-tinged mucus EXTREMITIES: Diffuse muscular wasting. No edema. No calf tenderness. Cap refill less than 1.5 seconds. Dorsalis pedis and posterior tibial pulses 3+ and symmetrical. NEUROLOGICAL: Patient localizes pain. Eyes are open spontaneously. He is making some grunting sounds with no discernible words. Moves all 4 extremities spontaneously. GCS 11. Course - Re-evaluation Re-evalutation: 08/24/20 16:04 Spoke with his sister is power of medical transcription and she designates this gentleman to be DNR/DNI. There was initially concern about GI bleeding. EMS had transfused a unit of packed cells on the way in. On my exam he has benign abdomen and is hemodynamically stable. He has some blood-tinged mucoid material in the rectal area. We placed a central line for this man because we were unable to get labs initially. His initial hemoglobin is 12.9 g. He has been more responsive since given fluid resuscitation. His white count is not elevated. He is afebrile. He does not have any infiltrate on chest x-ray. His urine looks infected. I have given IV Rocephin. Findings are discussed with the on-call hospitalist Dr. Haris Mendoza who will admit to the floor. - Vital Signs Vital signs: Temp Pulse Resp BP Pulse Ox 97.1 F 17 150/137 H 95 08/24/20 13:15 08/24/20 15:31 08/24/20 15:31 08/24/20 15:31 - Laboratory Results Result Diagrams: 08/24/20 14:58 08/24/20 14:58 Laboratory Results Interpreted: 08/24/20 08/24/20 08/24/20 13:30 14:58 14:58 RBC 4.09 L Hgb 12.1 L Hct 36.8 L RDW 14.2 H Sodium 136.3 L BUN 52 H Creatinine 1.59 H Est GFR ( Amer) 54 L Est GFR (MDRD) Non-Af 45 L Albumin 3.4 L Urine Protein 100 H Urine Blood MODERATE H Urine Urobilinogen 4.0 H Ur Leukocyte Esterase LARGE H Critical Laboratory Results Reviewed: No Critical Results - Radiology Results Radiology Results Interpreted: 08/24/20 16:04 Chest X-Ray 08/24/20 14:47 IMPRESSION: NO PNEUMOTHORAX FOLLOWING CENTRAL LINE PLACEMENT. NO ACUTE FINDINGS IN THE CHEST. Critical Radiology Results Reviewed: No Critical Results Procedures - Central Line Right Subclavian Time completed: 14:40 Consent obtained: No - Emergency implied consent Central line pre-insertion: Sterile PPE donned, Betadine prep applied, Sterile drapes applied Central line size (Fr.): 10 Central line lumen type: Triple Anesthetic type: 1% Lidocaine mL's of anesthesia: 3 Ultrasound guided: No CM at insertion site: 15 Line secured with sutures: Yes Central line post-insertion: Blood return from lumens, Biopatch applied, Sutured, Sterile dressing applied, Position confirmed w/ CXR Number of attempts: 1 Complications: No Discharge - Discharge Clinical Impression: Urinary tract infection, Dehydration, Rectal bleeding Dementia Qualifiers: Dementia type: unspecified type Dementia behavioral disturbance: without behavioral disturbance Qualified Code(s): F03.90 - Unspecified dementia without behavioral disturbance Condition: Fair Disposition: ADMITTED INPATIENT Admitting Provider: Reji (Hospitalist) Unit Admitted: Medical Floor Referrals: ROLO ZHOU MD [Primary Care Provider] - Follow up as needed
--- NOTE | 2020-08-24 15:22 | RADIOLOGY REPORT (SQ) ---
EXAM DESCRIPTION: CHEST SINGLE VIEW IMAGES COMPLETED DATE/TIME: 08/24/2020 3:12 pm REASON FOR STUDY: line placement COMPARISON: 11/22/2019. EXAM PARAMETERS: NUMBER OF VIEWS: One view. TECHNIQUE: Single frontal radiographic view of the chest acquired. RADIATION DOSE: NA LIMITATIONS: None. FINDINGS: LUNGS AND PLEURA: Chronic elevation of the right hemidiaphragm. Mild basilar atelectasis/ scarring. No pneumothorax. MEDIASTINUM AND HILAR STRUCTURES: No masses. Contour normal. HEART AND VASCULAR STRUCTURES: Heart normal in size. Normal vasculature. BONES: No acute findings. HARDWARE: Central line on the right, tip at the level of the superior vena cava. OTHER: No other significant finding. IMPRESSION: NO PNEUMOTHORAX FOLLOWING CENTRAL LINE PLACEMENT. NO ACUTE FINDINGS IN THE CHEST. TECHNICAL DOCUMENTATION: JOB ID: [id number] 2010 [employer]- All Rights Reserved Reading location - IP/workstation name: [email or web address]
[2020-08-24 15:24] LABS: ABSOLUTE EOSINOPHILS # (AUTO) 0.1 10^3/uL (0.0-0.6); ABSOLUTE LYMPHOCYTES (AUTO) 1.7 10^3/uL (0.5-4.7); ABSOLUTE NEUT (AUTO) 7.5 10^3/uL (1.7-8.2); BASOPHILS % (AUTO) 0.3 % (0-2); EOSINOPHILS % (AUTO) 0.8 % (0-6); HEMATOCRIT 36.8 % (37.9-51.0); HEMOGLOBIN 12.1 g/dL (13.5-17.0); LYMPHOCYTES % (AUTO) 16.4 % (13-45); MEAN CORPUSCULAR HEMOGLOBIN 29.5 pg (27.0-33.4); MEAN CORPUSCULAR HGB CONC 32.8 g/dL (32.0-36.0); MEAN CORPUSCULAR VOLUME 90 fl (80-97); MONOCYTES % (AUTO) 9.6 % (3-13); PLATELET COUNT 365 10^3/uL (150-450); RED BLOOD COUNT 4.09 10^6/uL (4.35-5.55); RED CELL DISTRIBUTION WIDTH 14.2 % (11.5-14.0); SEGMENTED NEUTROPHILS % (AUTO) 72.9 % (42-78); TOTAL CELLS COUNTED % (AUTO) 100 %; WHITE BLOOD COUNT 10.3 10^3/uL (4.0-10.5)
[2020-08-24 15:29] LABS: INTERNATIONAL RATION (INR) 1.09; PROTHROMBIN TIME 14.3 SEC (11.4-15.4)
[2020-08-24] MEDS ORDERED: ONDANSETRON HCL INJ/PF 4 MG/2 ML SDV IV ONE (15:45)
[2020-08-24 15:53] LABS: ALBUMIN 3.4 g/dL (3.5-5.0); ALKALINE PHOSPHATASE 119 U/L (38-126); ANION GAP 7 (5-19); ASPARTATE AMINO TRANSFERASE 17 U/L (17-59); BILIRUBIN,DIRECT 0.4 mg/dL (0.0-0.4); BILIRUBIN,TOTAL 1.3 mg/dL (0.2-1.3); BLOOD UREA NITROGEN 52 mg/dL (7-20); CALCIUM 9.1 mg/dL (8.4-10.2); CARBON DIOXIDE 26 mmol/L (22-30); CHLORIDE 103 mmol/L (98-107); GLUCOSE 101 mg/dL (75-110); TOTAL PROTEIN 7.3 g/dL (6.3-8.2)
[2020-08-24] MEDS ORDERED: CEFTRIAXONE INJ 1000 MG VIAL IV ONE (15:57)
[2020-08-24] MEDS ORDERED: ACETAMINOPHEN 325 MG TABLET PO PRN (16:27)
[2020-08-24] MEDS ORDERED: ONDANSETRON HCL INJ/PF 4 MG/2 ML SDV IV PRN (16:27)
--- NOTE | 2020-08-24 16:59 | PDOC H&P ---
History of Present Illness Admission Date/PCP: 08/24/20 16:18 ROLO ZHOU MD History of Present Illness: VIRIDIANA JOSHUA is a 60 year old male with a history of dementia, schizophrenia, bipolar disorder, epilepsy, and moderate protein calorie malnutrition who is a long-term care resident at [facility] who presents via EMS, ostensibly for rectal bleeding. He apparently had some bright red blood per rectum and so they called EMS. When they got to [facility] they said his blood pressure was low and so they gave him a unit of packed red blood cells. It looks like his hemoglobin typically runs around 10, and when he got to the ER his hemoglobin was 12. He is gotten some fluid here and he is actually hypertensive now. Urinalysis was suggestive of UTI and antibiotics were started. It had on the sheet sent with him from [facility] that he is a full code, but Dr. Pozo has contacted his sister in [place] who is his medical power of deputy county attorney, and his sister said that she did not want him resuscitated or intubated, and that she did not want any procedures, she just wants us to try to treat him medically without any aggressive measures. Past Medical History Neurological Medical History: Reports: Seizures GI Medical History: Reports: Gastroesophageal Reflux Disease Psychiatric Medical History: Reports: Depression Social History Smoking Status: Unknown if Ever Smoked Frequency of Alcohol Use: None Hx Recreational Drug Use: No Hx Prescription Drug Abuse: No - Advance Directive Resuscitation Status: Do Not Intubate Family History Family History: Reviewed & Not Pertinent Parental Family History Reviewed: No - Unable to obtain Children Family History Reviewed: NA Sibling(s) Family History Reviewed.: Unknown Medication/Allergy Home Medications: Acetaminophen [Tylenol] 650 mg PO Q4HP PRN 11/23/19 Amino AC/Protein Hydr/Whey Pro [Prosource Plus Protein Liquid] 30 ml PO DAILY 11/23/19 Baclofen [Baclofen 10 mg Tablet] 10 mg PO Q8HP PRN 11/23/19 Bisacodyl [Dulcolax 10 mg Supp.rect] 10 mg OR DAILYP PRN 11/23/19 Docusate Sodium [Colace 100 mg Capsule] 100 mg PO BID 11/23/19 Famotidine [Pepcid 20 mg Tablet] 20 mg PO BID 11/23/19 Lactulose [Cephulac Syrup 20 gm/30 ml Udcup] 15 ml PO DAILY 11/23/19 Lamotrigine [Lamictal] 50 mg PO 2000 11/23/19 Lamotrigine [Lamictal] 200 mg PO Q8@0800,1200,1600 11/23/19 Levetiracetam [Keppra] 500 mg PO Q12 11/23/19 Menthol [Biofreeze] 1 applic TOP BID 11/23/19 Mirtazapine [Remeron 15 mg Tablet] 7.5 mg PO QPM 11/23/19 Phenytoin Sodium Extended [Dilantin 100 mg Capsule.er] 200 mg PO Q12 11/23/19 Polyethylene Glycol 3350 [Miralax Powder 17 gm/Packet] 1 packet PO DAILY 11/23/19 Sertraline HCl [Zoloft 50 mg Tablet] 25 mg PO DAILY 11/23/19 Levofloxacin [Levaquin 750 mg Tablet] 750 mg PO DAILY 5 Days #5 tablet 11/27/19 Allergies/Adverse Reactions: lorazepam [From Ativan] Allergy (Verified 08/24/20 14:42) Review of Systems ROS unobtainable: Due to mental status Physical Exam Vital Signs: Temp Pulse Resp BP Pulse Ox 97.1 F 16 146/113 H 92 08/24/20 13:15 08/24/20 16:21 08/24/20 16:21 08/24/20 16:21 Intake & Output 08/23/20 08/24/20 08/25/20 06:59 06:59 06:59 Intake Total 1000 Balance 1000 Weight 70 kg General appearance: PRESENT: no acute distress, disheveled, thin, other - Demented and rambling incoherently Head exam: PRESENT: atraumatic, normocephalic Eye exam: PRESENT: EOMI. ABSENT: conjunctival injection, nystagmus, scleral icterus Ear exam: PRESENT: normal external ear exam Mouth exam: PRESENT: dry mucosa, neck supple Teeth exam: PRESENT: poor dentation Neck exam: ABSENT: carotid bruit, JVD, lymphadenopathy, meningismus, tenderness, thyromegaly Respiratory exam: PRESENT: clear to auscultation james, symmetrical, unlabored. ABSENT: accessory muscle use, chest wall tenderness, crackles, prolonged expiratory phas, rhonchi, tachypnea, wheezes Cardiovascular exam: PRESENT: RRR, +S1, +S2 Pulses: PRESENT: normal carotid pulses Vascular exam: PRESENT: normal capillary refill GI/Abdominal exam: PRESENT: hypoactive bowel sounds, soft. ABSENT: distended, rebound, tenderness Extremities exam: ABSENT: clubbing, pedal edema Musculoskeletal exam: PRESENT: other - Muscle wasting in the lower extremities Neurological exam: PRESENT: awake, other - Nonsensical speech. ABSENT: oriented to person, oriented to place, oriented to time, oriented to situation Psychiatric exam: PRESENT: unusual affect Skin exam: PRESENT: dry, warm Results Laboratory Results: 08/24/20 14:58 08/24/20 14:58 08/24/20 08/24/20 08/24/20 13:30 14:58 14:58 WBC 10.3 RBC 4.09 L Hgb 12.1 L Hct 36.8 L MCV 90 MCH 29.5 MCHC 32.8 RDW 14.2 H Plt Count 365 Seg Neutrophils % 72.9 Sodium 136.3 L Potassium 5.0 Chloride 103 Carbon Dioxide 26 Anion Gap 7 BUN 52 H Creatinine 1.59 H Est GFR ( Amer) 54 L Glucose 101 Lactic Acid Calcium 9.1 Magnesium 2.3 Total Bilirubin 1.3 AST 17 Alkaline Phosphatase 119 Total Protein 7.3 Albumin 3.4 L Urine Color YELLOW Urine Appearance TURBID Urine pH 5.0 Ur Specific [place] 1.020 Urine Protein 100 H Urine Glucose (UA) NEGATIVE Urine Ketones NEGATIVE Urine Blood MODERATE H Urine Nitrite NEGATIVE Ur Leukocyte Esterase LARGE H Urine WBC (Auto) >182 Urine RBC (Auto) 125 Blood Type Antibody Screen 08/24/20 08/24/20 14:58 14:58 WBC RBC Hgb Hct MCV MCH MCHC RDW Plt Count Seg Neutrophils % Sodium Potassium Chloride Carbon Dioxide Anion Gap BUN Creatinine Est GFR ( Amer) Glucose Lactic Acid 1.0 Calcium Magnesium Total Bilirubin AST Alkaline Phosphatase Total Protein Albumin Urine Color Urine Appearance Urine pH Ur Specific [place] Urine Protein Urine Glucose (UA) Urine Ketones Urine Blood Urine Nitrite Ur Leukocyte Esterase Urine WBC (Auto) Urine RBC (Auto) Blood Type A POSITIVE Antibody Screen NEGATIVE Impressions: Chest X-Ray 08/24/20 14:47 IMPRESSION: NO PNEUMOTHORAX FOLLOWING CENTRAL LINE PLACEMENT. NO ACUTE FINDINGS IN THE CHEST. Assessment and Plan - Diagnosis (1) Acute kidney injury Is this a current diagnosis for this admission?: Yes (2) UTI (urinary tract infection) Qualifiers: Urinary tract infection type: acute cystitis Hematuria presence: without hematuria Qualified Code(s): N30.00 - Acute cystitis without hematuria Is this a current diagnosis for this admission?: Yes (3) Schizophrenia Qualifiers: Schizophrenia type: undifferentiated schizophrenia Qualified Code(s): F20.3 - Undifferentiated schizophrenia Is this a current diagnosis for this admission?: Yes (4) Bipolar 1 disorder Is this a current diagnosis for this admission?: Yes (5) Moderate protein-calorie malnutrition Is this a current diagnosis for this admission?: Yes (6) Dehydration Is this a current diagnosis for this admission?: Yes (7) Dementia Qualifiers: Dementia type: unspecified type Dementia behavioral disturbance: without behavioral disturbance Qualified Code(s): F03.90 - Unspecified dementia without behavioral disturbance Is this a current diagnosis for this admission?: Yes (8) Seizure disorder Is this a current diagnosis for this admission?: Yes - Plan Summary Summary: Blood pressure has responded to IV fluids. Rocephin has been started, blood and urine cultures pending. He is on a mechanical soft diet at the snf and so we will continue that. As soon as we get his psychiatric and seizure medic ations confirmed by pharmacy we will get those started. We will monitor for any signs of ongoing bleeding, otherwise we will defer any sort of endoscopic evaluation. This is done at the request of his sister who is his medical power of deputy county attorney. - Time Time Spent with patient: 35 or more minutes Anticipated Discharge Disposition: Alf Facility Anticipated Discharge Timeframe: Unknown - Inpatient Certification Based on my medical assessment, after consideration of the patient's comorbidities, presenting symptoms, or acuity I expect that the services needed warrant INPATIENT care.: Yes I certify that my determination is in accordance with my understanding of Medicare's requirements for reasonable and necessary INPATIENT services [42 CFR 412.3e].: Yes Medical Necessity: Significant Comorbidiites Make Outpatient Treatment Too Risky, Need Close Monitoring Due to Risk of Patient Decompensation, Need For IV Fluids, Need For Continuous Telemetry Monitoring, Need for IV Antibiotics, Risk of Complication if Not Cared For in Hospital
--- NOTE | 2020-08-24 17:53 | EKG REPORT ---
SEVERITY:- BORDERLINE ECG - SINUS RHYTHM CONSIDER RIGHT VENTRICULAR HYPERTROPHY : Confirmed by: Obie Rutherford 24-Aug-2020 17:52:39
[2020-08-24 18:00] LABS: VENOUS BLOOD BASE EXCESS -3.5 mmol/L; VENOUS BLOOD HCO3 22.9 mmol/L (20-32); VENOUS BLOOD PCO2 46.4 mmHg (35-63); VENOUS BLOOD PH 7.31 (7.30-7.42)
[2020-08-24] MEDS ORDERED: BACLOFEN 10 MG TABLET PO PRN (18:45)
[2020-08-24] MEDS ORDERED: BISACODYL 10 MG SUPP.RECT PR PRN (18:45)
[2020-08-24] MEDS ORDERED: HYDROCODONE/ACETAMINOPHEN 7.5-325 MG TABLET PO PRN (18:45)
[2020-08-24] MEDS ORDERED: HALOPERIDOL LACTATE INJ 5 MG/1 ML VIAL IM PRN (18:45)
[2020-08-24] MEDS: RINGERS SOLUTION,LACTATED 1,000 ML IV PRN (19:01)
[2020-08-24] MEDS ORDERED: LAMOTRIGINE 25 MG PO SCH (20:00)
[2020-08-24] MEDS: FAMOTIDINE 20 MG TABLET PO SCH (21:49)
[2020-08-24] MEDS: CLOZAPINE 25 MG TABLET PO SCH (21:50)
[2020-08-24] MEDS: LEVETIRACETAM 500 MG TABLET PO SCH (21:50)
[2020-08-24] MEDS: QUETIAPINE FUMARATE 100 MG TABLET PO SCH (21:50)
[2020-08-24] MEDS: LAMOTRIGINE 100 MG TABLET PO SCH (21:54)
[2020-08-25] MEDS ORDERED: NORMAL SALINE 10 ML SDV (AFTER EACH USE) IV PRN (06:00)
[2020-08-25 07:11] LABS: HEMATOCRIT 31.3 % (37.9-51.0); HEMOGLOBIN 10.3 g/dL (13.5-17.0); MEAN CORPUSCULAR HEMOGLOBIN 29.8 pg (27.0-33.4); MEAN CORPUSCULAR HGB CONC 32.9 g/dL (32.0-36.0); MEAN CORPUSCULAR VOLUME 91 fl (80-97); PLATELET COUNT 275 10^3/uL (150-450); RED BLOOD COUNT 3.45 10^6/uL (4.35-5.55); RED CELL DISTRIBUTION WIDTH 14.4 % (11.5-14.0); WHITE BLOOD COUNT 9.1 10^3/uL (4.0-10.5)
[2020-08-25 07:48] LABS: ANION GAP 6 (5-19); BLOOD UREA NITROGEN 35 mg/dL (7-20); CALCIUM 8.5 mg/dL (8.4-10.2); CARBON DIOXIDE 25 mmol/L (22-30); CHLORIDE 107 mmol/L (98-107); GLUCOSE 101 mg/dL (75-110); POTASSIUM 4.4 mmol/L (3.6-5.0)
[2020-08-25] MEDS: LAMOTRIGINE 100 MG TABLET PO SCH ×6 (09:27→19:49)
[2020-08-25] MEDS: DOCUSATE SODIUM 100 MG CAPSULE PO SCH ×3 (09:27→17:24)
[2020-08-25] MEDS: MULTIVITAMIN TABLET PO SCH (09:27)
[2020-08-25] MEDS: PHENYTOIN SODIUM EXTENDED 100 MG CAPSULE PO SCH (09:27)
[2020-08-25] MEDS: QUETIAPINE FUMARATE 25 MG TABLET PO SCH ×3 (09:27→17:24)
[2020-08-25] MEDS: LEVETIRACETAM 500 MG TABLET PO SCH ×3 (09:27→21:09)
[2020-08-25] MEDS: POLYETHYLENE GLYCOL 3350 POWDER 17 GM/1 PACKET PO SCH ×2 (09:28→09:39)
[2020-08-25] MEDS: NORMAL SALINE 10 ML SDV (SCHEDULED) IV SCH ×2 (09:29→21:12)
[2020-08-25] MEDS: BENZTROPINE MESYLATE 1 MG TABLET PO SCH ×3 (09:31→13:20)
[2020-08-25] MEDS: RINGERS SOLUTION,LACTATED 1,000 ML IV PRN (09:31)
[2020-08-25] MEDS ORDERED: (PENDING PHARMACY ID) (Multivitamin [Multiple Vitamins] 1 EACH Tablet) PO SCH (10:00)
[2020-08-25] MEDS ORDERED: QUETIAPINE FUMARATE 100 MG TABLET PO SCH (10:00)
[2020-08-25] MEDS ORDERED: FAMOTIDINE 20 MG TABLET PO SCH (10:00)
[2020-08-25] MEDS ORDERED: SENNOSIDES 8.6 MG PO SCH (10:00)
[2020-08-25] MEDS: CEFTRIAXONE 1 GM/D5W RTU 1 GM/50 ML RTUPB IV SCH (12:30)
--- NOTE | 2020-08-25 17:08 | PDOC PROGRESS REPORT ---
Subjective Date:: 08/25/20 Subjective:: No adverse events overnight. Vital signs been stable. He continues to spit out his medicines, his nurse tried multiple times today to give them to him. He has had decent urine output. Unfortunately, when his urinalysis was ordered yesterday, a reflex culture was not ordered, and now the sample has been discarded and so we cannot run a culture on the original specimen. Blood cultures have been negative. Reason For Visit: DEHYDRATION, ACUTE KIDNEY INJURY, UTI Physical Exam Vital Signs: Temp Pulse Resp BP Pulse Ox 97.7 F 80 18 112/60 98 08/25/20 14:59 08/25/20 14:59 08/25/20 14:59 08/25/20 14:59 08/25/20 14:59 Intake & Output 08/24/20 08/25/20 08/26/20 06:59 06:59 06:59 Intake Total 1000 1200 Output Total 450 300 Balance 550 900 Weight 48 kg General appearance: PRESENT: no acute distress, disheveled, thin, other - Demented and rambling incoherently Respiratory exam: PRESENT: clear to auscultation james, symmetrical, unlabored. ABSENT: accessory muscle use, chest wall tenderness, crackles, prolonged expiratory phas, rhonchi, tachypnea, wheezes Cardiovascular exam: PRESENT: RRR, +S1, +S2 Pulses: PRESENT: normal carotid pulses Vascular exam: PRESENT: normal capillary refill GI/Abdominal exam: PRESENT: hypoactive bowel sounds, soft. ABSENT: distended, rebound, tenderness Extremities exam: ABSENT: clubbing, pedal edema Musculoskeletal exam: PRESENT: other - Muscle wasting in the lower extremities Neurological exam: PRESENT: awake, other - Nonsensical speech. ABSENT: oriented to person, oriented to place, oriented to time, oriented to situation Psychiatric exam: PRESENT: unusual affect Skin exam: PRESENT: dry, warm Results Laboratory Results: 08/25/20 05:50 08/25/20 05:50 08/24/20 08/24/20 08/24/20 17:36 20:09 22:48 WBC RBC Hgb Hct MCV MCH MCHC RDW Plt Count VBG pH 7.31 VBG pCO2 46.4 VBG HCO3 22.9 VBG Base Excess -3.5 Sodium Potassium Chloride Carbon Dioxide Anion Gap BUN Creatinine Est GFR ( Amer) Glucose Lactic Acid 1.9 1.6 Calcium 08/25/20 08/25/20 05:50 05:50 WBC 9.1 RBC 3.45 L Hgb 10.3 L Hct 31.3 L MCV 91 MCH 29.8 MCHC 32.9 RDW 14.4 H Plt Count 275 VBG pH VBG pCO2 VBG HCO3 VBG Base Excess Sodium 137.7 Potassium 4.4 Chloride 107 Carbon Dioxide 25 Anion Gap 6 BUN 35 H Creatinine 1.09 Est GFR ( Amer) > 60 Glucose 101 Lactic Acid Calcium 8.5 Impressions: Chest X-Ray 08/24/20 14:47 IMPRESSION: NO PNEUMOTHORAX FOLLOWING CENTRAL LINE PLACEMENT. NO ACUTE FINDINGS IN THE CHEST. Assessment and Plan - Diagnosis (1) Acute kidney injury Is this a current diagnosis for this admission?: Yes (2) UTI (urinary tract infection) Qualifiers: Urinary tract infection type: acute cystitis Hematuria presence: without hematuria Qualified Code(s): N30.00 - Acute cystitis without hematuria Is this a current diagnosis for this admission?: Yes (3) Schizophrenia Qualifiers: Schizophrenia type: undifferentiated schizophrenia Qualified Code(s): F20.3 - Undifferentiated schizophrenia Is this a current diagnosis for this admission?: Yes (4) Bipolar 1 disorder Is this a current diagnosis for this admission?: Yes (5) Moderate protein-calorie malnutrition Is this a current diagnosis for this admission?: Yes (6) Dehydration Is this a current diagnosis for this admission?: Yes (7) Dementia Qualifiers: Dementia type: unspecified type Dementia behavioral disturbance: without behavioral disturbance Qualified Code(s): F03.90 - Unspecified dementia without behavioral disturbance Is this a current diagnosis for this admission?: Yes (8) Seizure disorder Is this a current diagnosis for this admission?: Yes - Plan Summary Summary: Blood pressure has responded to IV fluids. Rocephin has been started, blood cultures negative thus far, urine culture complication as previously noted. We will monitor for any signs of ongoing bleeding, otherwise we will defer any sort of endoscopic evaluation; thus far there have been no more signs of bleeding.. This is done at the request of his sister who is his medical power of county attorney. He is spitting out his medications most of the time, so we will continue to try to give them when we can. - Time Time Spent with patient: 15-24 minutes Anticipated Discharge Disposition: Long-Term Facility Anticipated Discharge Timeframe: within 72 hours
[2020-08-25] MEDS ORDERED: PHENYTOIN SODIUM EXTENDED 100 MG CAPSULE PO SCH (18:00)
[2020-08-25] MEDS: CLOZAPINE 25 MG TABLET PO SCH (21:08)
[2020-08-25] MEDS: QUETIAPINE FUMARATE 100 MG TABLET PO SCH (21:09)
[2020-08-25] MEDS: FAMOTIDINE 20 MG TABLET PO SCH (21:11)
[2020-08-26] MEDS: RINGERS SOLUTION,LACTATED 1,000 ML IV PRN (02:28)
[2020-08-26] MEDS: LAMOTRIGINE 100 MG TABLET PO SCH ×2 (09:52→11:21)
[2020-08-26] MEDS: POLYETHYLENE GLYCOL 3350 POWDER 17 GM/1 PACKET PO SCH (09:53)
[2020-08-26] MEDS: QUETIAPINE FUMARATE 25 MG TABLET PO SCH (09:53)
[2020-08-26] MEDS: DOCUSATE SODIUM 100 MG CAPSULE PO SCH (09:53)
[2020-08-26] MEDS: LEVETIRACETAM 500 MG TABLET PO SCH (09:53)
[2020-08-26] MEDS: NORMAL SALINE 10 ML SDV (SCHEDULED) IV SCH (09:54)
[2020-08-26] MEDS: MULTIVITAMIN TABLET PO SCH (09:54)
[2020-08-26] MEDS: PHENYTOIN SODIUM EXTENDED 100 MG CAPSULE PO SCH (09:55)
[2020-08-26] MEDS: BENZTROPINE MESYLATE 1 MG TABLET PO SCH ×2 (10:48→14:35)
[2020-08-26] MEDS: CEFTRIAXONE 1 GM/D5W RTU 1 GM/50 ML RTUPB IV SCH (11:19)
[2020-08-26 13:29] LABS: HEMATOCRIT 31.7 % (37.9-51.0); HEMOGLOBIN 10.4 g/dL (13.5-17.0); MEAN CORPUSCULAR HEMOGLOBIN 29.6 pg (27.0-33.4); MEAN CORPUSCULAR HGB CONC 32.9 g/dL (32.0-36.0); MEAN CORPUSCULAR VOLUME 90 fl (80-97); PLATELET COUNT 277 10^3/uL (150-450); RED BLOOD COUNT 3.53 10^6/uL (4.35-5.55); RED CELL DISTRIBUTION WIDTH 14.1 % (11.5-14.0); WHITE BLOOD COUNT 4.8 10^3/uL (4.0-10.5)
--- NOTE | 2020-08-26 13:42 | PDOC TRANSFER SUMMARY ---
Impression - Admit/DC Date/PCP Admission Date/Primary Care Provider: 08/24/20 16:18 ROLO ZHOU MD Discharge Date: 08/26/20 - Discharge Diagnosis (1) Acute kidney injury Is this a current diagnosis for this admission?: Yes (2) UTI (urinary tract infection) Is this a current diagnosis for this admission?: Yes (3) Schizophrenia Is this a current diagnosis for this admission?: Yes (4) Bipolar 1 disorder Is this a current diagnosis for this admission?: Yes (5) Moderate protein-calorie malnutrition Is this a current diagnosis for this admission?: Yes (6) Dehydration Is this a current diagnosis for this admission?: Yes (7) Dementia Is this a current diagnosis for this admission?: Yes (8) Seizure disorder Is this a current diagnosis for this admission?: Yes - Assessment Summary: Blood pressure has responded to IV fluids. Rocephin has been started, blood cultures negative thus far, urine culture complication as previously noted. We will monitor for any signs of ongoing bleeding, otherwise we will defer any sort of endoscopic evaluation; thus far there have been no more signs of bleeding.. This is done at the request of his sister who is his medical power of securities attorney. He is spitting out his medications most of the time, so we will continue to try to give them when we can. - Additional Information Resuscitation Status: Do Not Resuscitate Discharge Diet: Regular Discharge Activity: Other - resume previous level Referrals: ROLO ZHOU MD [Primary Care Provider] - Follow up as needed Prescriptions: Cephalexin Monohydrate [Keflex 250 mg/5 ml Susp] 500 mg PO TID #150 ml Home Medications: Acetaminophen [Tylenol] 650 mg PO Q4HP PRN 11/23/19 Baclofen [Baclofen 10 mg Tablet] 10 mg PO Q8HP PRN 11/23/19 Bisacodyl [Dulcolax 10 mg Supp.rect] 10 mg MT DAILYP PRN 11/23/19 Docusate Sodium [Colace 100 mg Capsule] 100 mg PO BID 11/23/19 Famotidine [Pepcid 20 mg Tablet] 20 mg PO BID 11/23/19 Lamotrigine [Lamictal] 50 mg PO 199911/23/19 Lamotrigine [Lamictal] 200 mg PO Q8@0800,1200,1600 11/23/19 Levetiracetam [Keppra] 500 mg PO Q12 11/23/19 Menthol [Biofreeze] 1 applic TOP BID 11/23/19 Phenytoin Sodium Extended [Dilantin 100 mg Capsule.er] 200 mg PO QAM 11/23/19 Polyethylene Glycol 3350 [Miralax Powder 17 gm/Packet] 17 gm PO DAILY 11/23/19 Benztropine Mesylate [Cogentin 1 mg Tablet] 0.5 mg PO BID@0800,1400 08/24/20 Clozapine [Clozaril 25 mg Tablet] 50 mg PO QHS 08/24/20 Diphenhydramine HCl [Benadryl 25 mg Capsule] 50 mg PO Q8HP PRN 08/24/20 Haloperidol Lactate [Haldol 5 mg/ml Inj 1 ml Vial] 1 ml IM Q8HP PRN 08/24/20 Hydrocodone/Acetaminophen [[place] 7.5-325 mg Tablet] 1 tab PO Q6HP PRN 08/24/20 Magnesium Hydroxide [Milk of Magnesia 30 ml Udcup] 30 ml PO DAILYP PRN 08/24/20 Multivitamin [Multiple Vitamins] 1 tab PO DAILY 08/24/20 Phenytoin Sodium Extended [Dilantin 100 mg Capsule.er] 300 mg PO QPM 08/24/20 Quetiapine Fumarate [Seroquel 100 mg Tablet] 75 mg PO BID 08/24/20 Quetiapine Fumarate [Seroquel 100 mg Tablet] 150 mg PO QHS 08/24/20 Sennosides [Senna] 8.6 mg PO DAILY MDD HOLD IF LOOSE STOOL 08/24/20 Trazodone HCl 50 mg PO QHS 08/24/20 Cephalexin Monohydrate [Keflex 250 mg/5 ml Susp] 500 mg PO TID #150 ml 08/26/20 History of Present Illiness History of Present Illness: VIRIDIANA JOSHUA is a 60 year old male with a history of dementia, schizophrenia, bipolar disorder, epilepsy, and moderate protein calorie malnutrition who is a long-term care resident at [facility] who presents via EMS, ostensibly for rectal bleeding. He apparently had some bright red blood per rectum and so they called EMS. When they got to [facility] they said his blood pressure was low and so they gave him a unit of packed red blood cells. It looks like his hemoglobin typically runs around 10, and when he got to the ER his hemoglobin was 12. He is gotten some fluid here and he is actually hypertensive now. Urinalysis was suggestive of UTI and antibiotics were started. It had on the sheet sent with him from [facility] that he is a full code, but Dr. Pozo has contacted his sister in [place] who is his medical power of securities attorney, and his sister said that she did not want him resuscitated or intubated, and that she did not want any procedures, she just wants us to try to treat him medically without any aggressive measures. Hospital Course Hospital Course: He has had 3 days of Rocephin, but for some reason the urine culture was never sent from the ER, so we were unable to get a sample until after he had had 2 doses of antibiotic. We are treating him with another 5 days of Keflex, given as a suspension in the hopes that he will be more likely to swallow that, because we had issues with him spitting out his pills in here. He was swallowing some of them, but sometimes he just did not want to swallow pills. I suspect that this is an ongoing issue for [facility] at the [facility] facility. He responded very well to IV fluids and his urine output was good his renal function returned to normal. He will resume his usual medications, hopefully he will take them better for the staff at [facility] than he did for us. Physical Exam Vital Signs: Temp Pulse Resp BP Pulse Ox 97.5 F 81 18 104/58 L 97 08/26/20 12:23 08/26/20 12:23 08/26/20 12:23 08/26/20 12:23 08/26/20 12:23 Intake & Output 08/25/20 08/26/20 08/27/20 06:59 06:59 06:59 Intake Total 1000 2330 50 Output Total 450 1775 Balance 550 555 50 Weight 48 kg 40.1 kg 40.1 kg General appearance: PRESENT: no acute distress, disheveled, thin, other - Demented and rambling incoherently Respiratory exam: PRESENT: clear to auscultation james, symmetrical, unlabored. ABSENT: accessory muscle use, chest wall tenderness, crackles, prolonged expiratory phas, rhonchi, tachypnea, wheezes Cardiovascular exam: PRESENT: RRR, +S1, +S2 Pulses: PRESENT: normal carotid pulses Vascular exam: PRESENT: normal capillary refill GI/Abdominal exam: PRESENT: hypoactive bowel sounds, soft. ABSENT: distended, rebound, tenderness Extremities exam: ABSENT: clubbing, pedal edema Musculoskeletal exam: PRESENT: other - Muscle wasting in the lower extremities Neurological exam: PRESENT: awake, other - Nonsensical speech. ABSENT: oriented to person, oriented to place, oriented to time, oriented to situation Psychiatric exam: PRESENT: unusual affect Skin exam: PRESENT: dry, warm Results Laboratory Results: WBC 4.8 10^3/uL (4.0-10.5) 08/26/20 13:10 RBC 3.53 10^6/uL (4.35-5.55) L 08/26/20 13:10 Hgb 10.4 g/dL (13.5-17.0) L 08/26/20 13:10 Hct 31.7 % (37.9-51.0) L 08/26/20 13:10 MCV 90 fl (80-97) 08/26/20 13:10 MCH 29.6 pg (27.0-33.4) 08/26/20 13:10 MCHC 32.9 g/dL (32.0-36.0) 08/26/20 13:10 RDW 14.1 % (11.5-14.0) H 08/26/20 13:10 Plt Count 277 10^3/uL (150-450) 08/26/20 13:10 Lymph % (Auto) 16.4 % (13-45) 08/24/20 14:58 [place] % (Auto) 9.6 % (3-13) 08/24/20 14:58 Eos % (Auto) 0.8 % (0-6) 08/24/20 14:58 Baso % (Auto) 0.3 % (0-2) 08/24/20 14:58 Absolute Neuts (auto) 7.5 10^3/uL (1.7-8.2) 08/24/20 14:58 Absolute Lymphs (auto) 1.7 10^3/uL (0.5-4.7) 08/24/20 14:58 Absolute Monos (auto) 1.0 10^3/uL (0.1-1.4) 08/24/20 14:58 Absolute Eos (auto) 0.1 10^3/uL (0.0-0.6) 08/24/20 14:58 Absolute Basos (auto) 0.0 10^3/uL (0.0-0.2) 08/24/20 14:58 Seg Neutrophils % 72.9 % (42-78) 08/24/20 14:58 PT 14.3 SEC (11.4-15.4) 08/24/20 14:58 INR 1.09 08/24/20 14:58 VBG pH 7.31 (7.30-7.42) 08/24/20 17:36 VBG pCO2 46.4 mmHg (35-63) 08/24/20 17:36 VBG HCO3 22.9 mmol/L (20-32) 08/24/20 17:36 VBG Base Excess -3.5 mmol/L 08/24/20 17:36 Sodium 137.7 mmol/L (137-145) 08/25/20 05:50 Potassium 4.4 mmol/L (3.6-5.0) 08/25/20 05:50 Chloride 107 mmol/L (98-107) 08/25/20 05:50 Carbon Dioxide 25 mmol/L (22-30) 08/25/20 05:50 Anion Gap 6 (5-19) 08/25/20 05:50 BUN 35 mg/dL (7-20) H 08/25/20 05:50 Creatinine 1.09 mg/dL (0.52-1.25) 08/25/20 05:50 Est GFR ( Amer) > 60 (>60) 08/25/20 05:50 Est GFR (MDRD) Non-Af > 60 (>60) 08/25/20 05:50 Glucose 101 mg/dL (75-110) 08/25/20 05:50 POC Glucose 90 mg/dL (70-110) 08/24/20 15:26 Lactic Acid 1.6 mmol/L (0.7-2.1) 08/24/20 22:48 Calcium 8.5 mg/dL (8.4-10.2) 08/25/20 05:50 Magnesium 2.3 mg/dL (1.6-2.3) 08/24/20 14:58 Total Bilirubin 1.3 mg/dL (0.2-1.3) 08/24/20 14:58 Direct Bilirubin 0.4 mg/dL (0.0-0.4) 08/24/20 14:58 Neonat Total Bilirubin Not Reportable 08/24/20 14:58 Neonat Direct Bilirubin Not Reportable 08/24/20 14:58 Neonat Indirect Bili Not Reportable 08/24/20 14:58 AST 17 U/L (17-59) 08/24/20 14:58 ALT 13 U/L (<50) 08/24/20 14:58 Alkaline Phosphatase 119 U/L (38-126) 08/24/20 14:58 Total Protein 7.3 g/dL (6.3-8.2) 08/24/20 14:58 Albumin 3.4 g/dL (3.5-5.0) L 08/24/20 14:58 Urine Color YELLOW 08/24/20 13:30 Urine Appearance TURBID 08/24/20 13:30 Urine pH 5.0 (5.0-9.0) 08/24/20 13:30 Ur Specific [place] 1.020 08/24/20 13:30 Urine Protein 100 mg/dL (NEGATIVE) H 08/24/20 13:30 Urine Glucose (UA) NEGATIVE mg/dL (NEGATIVE) 08/24/20 13:30 Urine Ketones NEGATIVE mg/dL (NEGATIVE) 08/24/20 13:30 Urine Blood MODERATE (NEGATIVE) H 08/24/20 13:30 Urine Nitrite NEGATIVE (NEGATIVE) 08/24/20 13:30 Urine Bilirubin NEGATIVE (NEGATIVE) 08/24/20 13:30 Urine Urobilinogen 4.0 mg/dL (<2.0) H 08/24/20 13:30 Ur Leukocyte Esterase LARGE (NEGATIVE) H 08/24/20 13:30 Urine WBC (Auto) >182 /HPF 08/24/20 13:30 Urine RBC (Auto) 125 /HPF 08/24/20 13:30 Urine Bacteria (Auto) 3+ /HPF 08/24/20 13:30 Urine WBC Clumps MANY /HPF 08/24/20 13:30 Squamous Epi Cells Auto 11 /HPF 08/24/20 13:30 Urine Ascorbic Acid NEGATIVE (NEGATIVE) 08/24/20 13:30 Urine Opiates Screen UNCONFIRMED POSITIVE 08/24/20 13:30 Urine Methadone Screen NEGATIVE 08/24/20 13:30 Ur Barbiturates Screen NEGATIVE 08/24/20 13:30 Ur Phencyclidine Scrn NEGATIVE 08/24/20 13:30 Ur Amphetamines Screen NEGATIVE 08/24/20 13:30 U Benzodiazepines Scrn NEGATIVE 08/24/20 13:30 Urine Cocaine Screen NEGATIVE 08/24/20 13:30 U Marijuana (THC) Screen NEGATIVE 08/24/20 13:30 COVID-19 Source See comment 08/25/20 12:45 Blood Type A POSITIVE 08/24/20 14:58 Antibody Screen NEGATIVE 08/24/20 14:58 Impressions: Chest X-Ray 08/24/20 14:47 IMPRESSION: NO PNEUMOTHORAX FOLLOWING CENTRAL LINE PLACEMENT. NO ACUTE FINDINGS IN THE CHEST. Plan Time Spent: Greater than 30 Minutes Stroke Is this a Stroke Patient?: No Acute Heart Failure Is this a Heart Failure Patient?: No
[2020-08-26 14:02] LABS: ANION GAP 5 (5-19); BLOOD UREA NITROGEN 18 mg/dL (7-20); CALCIUM 8.4 mg/dL (8.4-10.2); CARBON DIOXIDE 28 mmol/L (22-30); CHLORIDE 107 mmol/L (98-107); GLUCOSE 128 mg/dL (75-110); POTASSIUM 3.8 mmol/L (3.6-5.0)
[2020-08-26 16:22] VITALS: BP 97/67
== END 2020-08-26 17:31 | DRG 683 ==
LOC: ER 13:01 → EH 16:18 → 4N 18:15
PROVIDERS: ADMIT Family Medicine; ATTEND Family Medicine
PROC: 02HV33Z Insertion of Infusion Device into Superior Vena Cava, Percutaneous Approach (ICD-10-PCS; principal; 2020-08-24)
DX: N17.9 Acute kidney failure, unspecified (principal); N30.00 Acute cystitis without hematuria; E44.0 Moderate protein-calorie malnutrition; Z68.1 Body mass index [BMI] 19.9 or less, adult; F20.3 Undifferentiated schizophrenia; F31.9 Bipolar disorder, unspecified; F03.90 Unspecified dementia, unspecified severity, without behavioral disturbance, psychotic disturbance, mood disturbance, and anxiety; G40.909 Epilepsy, unspecified, not intractable, without status epilepticus; E86.0 Dehydration; K21.9 Gastro-esophageal reflux disease without esophagitis; Z66 Do not resuscitate; Z20.828 Contact with and (suspected) exposure to other viral communicable diseases; Z79.899 Other long term (current) drug therapy; Z88.8 Allergy status to other drugs, medicaments and biological substances
CPT/HCPCS: 36415; 71045; 80048; 80053; 80307; 81001; 82803; 82962; 83605; 83735; 85025; 85027; 85610; 86850; 86900; 86901; 87040; 87635; 93005; 93010; 96361; 96374; 96375; 99285; 0241U; C9803; J0696; J1630; J1642; J2405; J3490; J7030; J7120

== ENCOUNTER 2020-08-29 19:12 | Emergency (ER) | payer MEDICARE, OTHER, MEDICAID ==
[2020-08-29 20:16] LABS: ABSOLUTE EOSINOPHILS # (AUTO) 0.3 10^3/uL (0.0-0.6); ABSOLUTE LYMPHOCYTES (AUTO) 1.7 10^3/uL (0.5-4.7); ABSOLUTE MONOCYTES (AUTO) 1.1 10^3/uL (0.1-1.4); ABSOLUTE NEUT (AUTO) 7.6 10^3/uL (1.7-8.2); BASOPHILS % (AUTO) 0.4 % (0-2); EOSINOPHILS % (AUTO) 2.4 % (0-6); HEMATOCRIT 34.3 % (37.9-51.0); HEMOGLOBIN 11.3 g/dL (13.5-17.0); LYMPHOCYTES % (AUTO) 16.4 % (13-45); MEAN CORPUSCULAR HEMOGLOBIN 29.6 pg (27.0-33.4); MEAN CORPUSCULAR VOLUME 90 fl (80-97); PLATELET COUNT 389 10^3/uL (150-450); RED BLOOD COUNT 3.82 10^6/uL (4.35-5.55); RED CELL DISTRIBUTION WIDTH 13.7 % (11.5-14.0); SEGMENTED NEUTROPHILS % (AUTO) 70.8 % (42-78); TOTAL CELLS COUNTED % (AUTO) 100 %; WHITE BLOOD COUNT 10.7 10^3/uL (4.0-10.5)
[2020-08-29 20:26] LABS: ALBUMIN 3.3 g/dL (3.5-5.0); ALKALINE PHOSPHATASE 152 U/L (38-126); ANION GAP 7 (5-19); ASPARTATE AMINO TRANSFERASE 33 U/L (17-59); BILIRUBIN,DIRECT 0.4 mg/dL (0.0-0.4); BILIRUBIN,TOTAL 0.6 mg/dL (0.2-1.3); BLOOD UREA NITROGEN 23 mg/dL (7-20); CALCIUM 8.9 mg/dL (8.4-10.2); CARBON DIOXIDE 25 mmol/L (22-30); CHLORIDE 108 mmol/L (98-107); GLUCOSE 108 mg/dL (75-110); POTASSIUM 5.1 mmol/L (3.6-5.0); TOTAL PROTEIN 7.4 g/dL (6.3-8.2)
--- NOTE | 2020-08-29 22:21 | ER Document Report ---
ED General - General Chief Complaint: Diarrhea Stated Complaint: ABNORMAL BOWEL MOVEMENTS Time Seen by Provider: 08/29/20 21:52 Primary Care Provider: ROLO ZHOU MD [Primary Care Provider] - Follow up as needed Notes: Patient is a 60-year-old male that comes emergency department from [facility] for chief complaint of diarrhea, mucousy stools, possibly bloody stools with pink tinge. Patient has not had a fever, vomiting, difficulty breathing, cough, or any other reported symptoms. Patient has a history of schizophrenia, dementia, brain tumor removal, and is bedbound. He is a DNR. Patient is unable to give any meaningful history. Patient was recently hospitalized here and discharged home on Keflex, he is currently on Keflex antibiotics for a UTI. TRAVEL OUTSIDE OF THE [place] IN LAST 30 DAYS: No - Related Data Allergies/Adverse Reactions: lorazepam [From Ativan] Allergy (Verified 08/24/20 14:42) Home Medications: Clozapine. Clozaril. Dilantin. Glycolax powder. Lamictal. Mulitvitamin. Polyethylene glycol powder. Senna. Seroquel. Trazodone. Benzotropine Mesylate. Biofreeze. Docusate Sodium. Famotidine. Keppra. Menthol. Pepcid. Baclofen. Cephalexin Suspension. Keflex Past Medical History - General Information source: Patient, Emergency Med Personnel, Outside Facility Records - Social History Smoking Status: Unknown if Ever Smoked Frequency of alcohol use: None Drug Abuse: None Lives with: [facility] Family History: Reviewed & Not Pertinent Neurological Medical History: Reports: Hx Seizures Renal/ Medical History: Denies: Hx Peritoneal Dialysis GI Medical History: Reports: Hx Gastroesophageal Reflux Disease, Hx Ulcer - pressure ulcer on unspecified buttock, stage 2 Psychiatric Medical History: Reports: Hx Anxiety, Hx Bipolar Disorder, Hx Depression Past Surgical History: Reports: Hx Neurologic Surgery - removal of neoplasm - Immunizations Hx Diphtheria, Pertussis, Tetanus Vaccination: Yes Review of Systems - Review of Systems Constitutional: No symptoms reported EENT: No symptoms reported Cardiovascular: See HPI Respiratory: No symptoms reported Gastrointestinal: See HPI Genitourinary: No symptoms reported Male Genitourinary: No symptoms reported Musculoskeletal: No symptoms reported Skin: No symptoms reported Hematologic/Lymphatic: No symptoms reported Neurological/Psychological: No symptoms reported Physical Exam - Vital signs Vitals: Resp 20 08/29/20 18:04 - Notes Notes: GENERAL: Patient is very thin and chronically ill-appearing. He is however alert and cooperative, he does not have any signs of distress HEAD: Normocephalic, atraumatic. EYES: Pupils equal, round, and reactive to light. Extraocular movements intact. ENT: Oral mucosa moist, tongue midline. Oropharynx unremarkable. Airway patent. NECK: Full range of motion. Supple. Trachea midline. No lymphadenopathy. LUNGS: Clear to auscultation bilaterally, no wheezes, rales, or rhonchi. No respiratory distress. Non-tender chest wall. HEART: Regular rate and rhythm. No murmur ABDOMEN: Soft, non-tender. Non-distended. RECTAL: No tenderness, gross blood, masses, or abnormality noted. Hemoccult negative. EXTREMITIES: Moves all 4 extremities spontaneously. No edema, normal radial and dorsalis pedis pulses bilaterally. No cyanosis. BACK: no cervical, thoracic, lumbar midline tenderness. No saddle anesthesia, normal distal neurovascular exam. Moves all extremities in full range of motion. NEUROLOGICAL: Alert and oriented x3. Normal speech. Cranial nerves II through XII grossly intact. Strength 5/5 in all extremities. PSYCH: Calm and cooperative SKIN: Warm, dry, normal turgor. No rashes or lesions noted. Course - Re-evaluation Re-evalutation: 08/30/20 Patient with borderline hypoxia at 93% on room air. Lungs clear, no labored breathing, no cough. No complaints of chest pain or shortness of breath. Chest x-ray shows minimal bibasilar pneumonia. Patient is on Keflex currently for a UTI. He has no fever, CBC shows mild leukocytosis at 10 without shift or bandemia. Chemistry unremarkable. I did perform a rectal exam, this was negative for blood, no overt abnormalities, patient did not have any diarrhea or stool while he was here and he will be sent with culturing. Without signs of sepsis, signs of respiratory distress, or oxygen requirement I do not feel patient requires hospitalization at this time. He will be treated for pneumonia, given return precautions. On re-evaluation patient well-appearing with no significant change. Patient will be discharged back to SNF with return precautions, we called and discussed with them before discharge. - Vital Signs Vital signs: Temp Pulse Resp BP Pulse Ox 97.9 F 25 H 109/66 92 08/30/20 01:02 08/30/20 01:02 08/30/20 01:02 08/30/20 01:02 - Laboratory Results Result Diagrams: 08/29/20 19:47 08/29/20 19:47 Laboratory Results Interpreted: 08/29/20 08/29/20 19:47 19:47 WBC 10.7 H RBC 3.82 L Hgb 11.3 L Hct 34.3 L Potassium 5.1 H Chloride 108 H BUN 23 H Alkaline Phosphatase 152 H Albumin 3.3 L Critical Laboratory Results Reviewed: No Critical Results - Radiology Results Critical Radiology Results Reviewed: No Critical Results Discharge - Discharge Clinical Impression: Abnormal bowel movement Condition: Stable Disposition: HOME, SELF-CARE Additional Instructions: There is questionable minimal developing pneumonia, I recommend switching his antibiotic from the Keflex to Levaquin. He does not have any blood in his stool here, we were unable to get enough stool to perform testing, you have been provided with a script to perform stool culture/Gram stain and C. difficile testing, see form for this. Return if he worsens including developing fever, difficulty breathing, vomiting, or any other concerning or worsening symptoms. Prescriptions: Levofloxacin [Levaquin 750 mg Tablet] 750 mg PO DAILY #5 tablet Forms: Follow-Up Laboratory Testing Referrals: ROLO ZHOU MD [Primary Care Provider] - Follow up as needed
--- NOTE | 2020-08-29 23:34 | RADIOLOGY REPORT (SQ) ---
CLINICAL HISTORY: borderline hypoxia COMPARISON: 08/24/2020. TECHNIQUE: XR CHEST 1 VIEW 08/29/2020 10:17 PM [facility] FINDINGS: The heart is mildly enlarged. There is minimal right basilar airspace disease. There is also minimal left basilar airspace disease. There is no pleural effusion. There is no pneumothorax. There are no acute osseous findings. Right diaphragm is elevated. Right central line has been removed. IMPRESSION: Minimal bibasilar pneumonia with interval removal of right central line.
[2020-08-30 01:13] VITALS: BP 109/66
== END 2020-08-30 01:19 | disposition home or self-care (01) ==
LOC: ER 19:12
DX: R19.7 Diarrhea, unspecified (principal); R19.5 Other fecal abnormalities; J18.9 Pneumonia, unspecified organism; N39.0 Urinary tract infection, site not specified; R56.9 Unspecified convulsions; K21.9 Gastro-esophageal reflux disease without esophagitis; F31.9 Bipolar disorder, unspecified; F20.9 Schizophrenia, unspecified; Z79.899 Other long term (current) drug therapy; Z66 Do not resuscitate; Z74.01 Bed confinement status
CPT/HCPCS: 36415; 71045; 80053; 82270; 85025; 99284